=== PATIENT | female | born 1990 | race Caucasian/White ===

== ENCOUNTER 2018-12-26 02:24 | Inpatient (IN) | payer BC, MEDICAID ==
[2018-12-26] MEDS ORDERED: Sodium Chloride 0.9% 10 ML Syringe FLUSH PRN (02:29)
[2018-12-26] MEDS ORDERED: Sodium Chloride 0.9% 2.5 ML Syringe FLUSH PRN (02:29)
[2018-12-26] MEDS ORDERED: MVI, Adult with Vitamin K 10 ML, Thiamine 100 MG, Folic Acid 1 MG in Sodium Chloride 0.... IV ONE ×4 (02:31)
--- NOTE | 2018-12-26 02:58 | EDM.PDOC ---
ED HPI GENERAL MEDICAL PROBLEM - General Chief Complaint: Drug or Alcohol Abuse Stated Complaint: AMB Time Seen by Provider: 12/26/18 05:34 - History of Present Illness INITIAL COMMENTS - FREE TEXT/NARRATIVE: HISTORY AND PHYSICAL: History of present illness: Patient 28-year-old white female presents via paramedics intoxicated patient was drinking the night she's without any other reported complaints Review of systems: As per history of present illness and below otherwise all systems reviewed and negative. Past medical history: As per history of present illness and as reviewed below otherwise noncontributory. Surgical history: As per history of present illness and as reviewed below otherwise noncontributory. Social history: No reported history of drug or alcohol abuse. Family history: As per history of present illness and as reviewed below otherwise noncontributory. Physical exam: HEENT: Atraumatic, normocephalic, pupils reactive, negative for conjunctival pallor or scleral icterus, mucous membranes moist, throat clear, neck supple, nontender, trachea midline. Lungs: Clear to auscultation, breath sounds equal bilaterally, chest nontender. Heart: S1S2, regular, negative for clicks, rubs, or JVD. Abdomen: Soft, nondistended, nontender. Negative for masses or hepatosplenomegaly. Negative for costovertebral tenderness. Pelvis: Stable nontender. Genitourinary: Deferred. Rectal: Deferred. Extremities: Atraumatic, negative for cords or calf pain. Neurovascular unremarkable. Neuro: Moves all extremities limited but grossly nonfocal exam Diagnostics: CBC CMP UA UDS CT brain EKG chest x-ray EtOH Therapeutics: Banana bag 1 L bolus Impression: #1 acute alcohol intoxication Definitive disposition and diagnosis as appropriate pending reevaluation and review of above. Treatments PRODUCT REPRESENTATIVE: Reports: Oxygen - Related Data Allergies Allergy/AdvReac Type Severity Reaction Status Date / Time Sulfa (Sulfonamide Allergy Rash Verified 08/28/13 14:22 Antibiotics) Home Meds: Home Meds . [No Known Home Meds] 08/28/13 [History] ED ROS GENERAL - Review of Systems Review Of Systems: ROS reveals no pertinent complaints other than HPI. ED EXAM, GENERAL - Physical Exam Exam: See Below (See dictation) Course - Vital Signs Last Recorded V/S: Last Vital Signs Temp 36.4 C 12/26/18 02:30 Pulse 88 12/26/18 04:26 Resp 16 12/26/18 04:26 BP 104/67 12/26/18 04:26 Pulse Ox 100 12/26/18 04:26 - Orders/Labs/Meds Orders: Active Orders 24 hr Category Date Time Status EKG Documentation Completion [RC] STAT Care 12/26/18 02:30 Active ETOH [ETHANOL BLOOD MEDICAL] [CHEM] Stat Lab 12/26/18 05:31 Ordered Sodium Chloride 0.9% [Normal Saline] 1,000 ml Med 12/26/18 04:30 Active IV ASDIRECTED Sodium Chloride 0.9% [Saline Flush] Med 12/26/18 02:29 Active 10 ml FLUSH ASDIRECTED PRN Sodium Chloride 0.9% [Saline Flush] Med 12/26/18 02:29 Active 2.5 ml FLUSH ASDIRECTED PRN Saline Lock Insert [OM.PC] Stat Oth 12/26/18 02:29 Ordered Medication Orders Sodium Chloride (Normal Saline) 1,000 mls @ 125 mls/hr IV ASDIRECTED MAGO Last Admin: 12/26/18 04:25 Dose: 125 mls/hr Sodium Chloride (Saline Flush) 10 ml FLUSH ASDIRECTED PRN PRN Reason: Keep Vein Open Sodium Chloride (Saline Flush) 2.5 ml FLUSH ASDIRECTED PRN PRN Reason: Keep Vein Open Labs: Laboratory Tests 12/26/18 12/26/18 12/26/18 Range/Units 02:30 02:30 02:30 WBC 6.04 (4.0-11.0) K/uL RBC 4.07 L (4.30-5.90) M/uL Hgb 12.5 (12.0-16.0) g/dL Hct 38.1 (36.0-46.0) % MCV 93.6 (80.0-98.0) fL MCH 30.7 (27.0-32.0) pg MCHC 32.8 (31.0-37.0) g/dL RDW Std Deviation 53.2 (28.0-62.0) fl RDW Coeff of Jaquan 16 H (11.0-15.0) % Plt Count 452 H (150-400) K/uL MPV 9.40 (7.40-12.00) fL Neut % (Auto) 49.7 (48.0-80.0) % Lymph % (Auto) 45.9 H (16.0-40.0) % [place] % (Auto) 3.6 (0.0-15.0) % Eos % (Auto) 0.0 (0.0-7.0) % Baso % (Auto) 0.8 (0.0-1.5) % Neut # (Auto) 3.0 (1.4-5.7) K/uL Lymph # (Auto) 2.8 H (0.6-2.4) K/uL [place] # (Auto) 0.2 (0.0-0.8) K/uL Eos # (Auto) 0.0 (0.0-0.7) K/uL Baso # (Auto) 0.1 (0.0-0.1) K/uL Nucleated RBC % 0.0 /100WBC Nucleated RBCs # 0 K/uL INR 0.96 Sodium 146 H (136-145) mmol/L Potassium 3.9 (3.5-5.1) mmol/L Chloride 106 (98-107) mmol/L Carbon Dioxide 19.4 L (21.0-32.0) mmol/L BUN 7 (7.0-18.0) mg/dL Creatinine 0.6 (0.6-1.0) mg/dL Est Cr Clr Drug Dosing TNP Estimated GFR (MDRD) > 60.0 ml/min Glucose 100 (74-106) mg/dL Calcium 8.5 (8.5-10.1) mg/dL Total Bilirubin 0.4 (0.2-1.0) mg/dL AST 148 H (15-37) IU/L ALT 73 H (14-63) IU/L Alkaline Phosphatase 112 (46-116) U/L Troponin I < 0.050 (0.000-0.056) ng/mL Total Protein 7.0 (6.4-8.2) g/dL Albumin 3.3 L (3.4-5.0) g/dL Globulin 3.7 (2.6-4.0) g/dL Albumin/Globulin Ratio 0.9 (0.9-1.6) HCG, Qual (NEG) Urine Color Urine Appearance Urine pH (5.0-8.0) Ur Specific [place] (1.001-1.035) Urine Protein (NEGATIVE) mg/dL Urine Glucose (UA) (NEGATIVE) mg/dL Urine Ketones (NEGATIVE) mg/dL Urine Occult Blood (NEGATIVE) Urine Nitrite (NEGATIVE) Urine Bilirubin (NEGATIVE) Urine Urobilinogen (<2.0) EU/dL Ur Leukocyte Esterase (NEGATIVE) Urine Opiates Screen (NEGATIVE) Ur Oxycodone Screen (NEGATIVE) Urine Methadone Screen (NEGATIVE) Ur Barbiturates Screen (NEGATIVE) Ur Phencyclidine Scrn (NEGATIVE) Ur Amphetamine Screen (NEGATIVE) U Methamphetamines Scrn (NEGATIVE) U Benzodiazepines Scrn (NEGATIVE) U Cocaine Metab Screen (NEGATIVE) U Marijuana (THC) Screen (NEGATIVE) Ethyl Alcohol mg/dL 12/26/18 12/26/18 12/26/18 Range/Units 02:30 02:30 02:40 WBC (4.0-11.0) K/uL RBC (4.30-5.90) M/uL Hgb (12.0-16.0) g/dL Hct (36.0-46.0) % MCV (80.0-98.0) fL MCH (27.0-32.0) pg MCHC (31.0-37.0) g/dL RDW Std Deviation (28.0-62.0) fl RDW Coeff of Jaquan (11.0-15.0) % Plt Count (150-400) K/uL MPV (7.40-12.00) fL Neut % (Auto) (48.0-80.0) % Lymph % (Auto) (16.0-40.0) % [place] % (Auto) (0.0-15.0) % Eos % (Auto) (0.0-7.0) % Baso % (Auto) (0.0-1.5) % Neut # (Auto) (1.4-5.7) K/uL Lymph # (Auto) (0.6-2.4) K/uL [place] # (Auto) (0.0-0.8) K/uL Eos # (Auto) (0.0-0.7) K/uL Baso # (Auto) (0.0-0.1) K/uL Nucleated RBC % /100WBC Nucleated RBCs # K/uL INR Sodium (136-145) mmol/L Potassium (3.5-5.1) mmol/L Chloride (98-107) mmol/L Carbon Dioxide (21.0-32.0) mmol/L BUN (7.0-18.0) mg/dL Creatinine (0.6-1.0) mg/dL Est Cr Clr Drug Dosing Estimated GFR (MDRD) ml/min Glucose (74-106) mg/dL Calcium (8.5-10.1) mg/dL Total Bilirubin (0.2-1.0) mg/dL AST (15-37) IU/L ALT (14-63) IU/L Alkaline Phosphatase (46-116) U/L Troponin I (0.000-0.056) ng/mL Total Protein (6.4-8.2) g/dL Albumin (3.4-5.0) g/dL Globulin (2.6-4.0) g/dL Albumin/Globulin Ratio (0.9-1.6) HCG, Qual NEGATIVE (NEG) Urine Color YELLOW Urine Appearance CLEAR Urine pH 5.5 (5.0-8.0) Ur Specific [place] 1.010 (1.001-1.035) Urine Protein NEGATIVE (NEGATIVE) mg/dL Urine Glucose (UA) NEGATIVE (NEGATIVE) mg/dL Urine Ketones 15 H (NEGATIVE) mg/dL Urine Occult Blood NEGATIVE (NEGATIVE) Urine Nitrite NEGATIVE (NEGATIVE) Urine Bilirubin NEGATIVE (NEGATIVE) Urine Urobilinogen 0.2 (<2.0) EU/dL Ur Leukocyte Esterase NEGATIVE (NEGATIVE) Urine Opiates Screen (NEGATIVE) Ur Oxycodone Screen (NEGATIVE) Urine Methadone Screen (NEGATIVE) Ur Barbiturates Screen (NEGATIVE) Ur Phencyclidine Scrn (NEGATIVE) Ur Amphetamine Screen (NEGATIVE) U Methamphetamines Scrn (NEGATIVE) U Benzodiazepines Scrn (NEGATIVE) U Cocaine Metab Screen (NEGATIVE) U Marijuana (THC) Screen (NEGATIVE) Ethyl Alcohol 560 mg/dL 12/26/18 Range/Units 02:40 WBC (4.0-11.0) K/uL RBC (4.30-5.90) M/uL Hgb (12.0-16.0) g/dL Hct (36.0-46.0) % MCV (80.0-98.0) fL MCH (27.0-32.0) pg MCHC (31.0-37.0) g/dL RDW Std Deviation (28.0-62.0) fl RDW Coeff of Jaquan (11.0-15.0) % Plt Count (150-400) K/uL MPV (7.40-12.00) fL Neut % (Auto) (48.0-80.0) % Lymph % (Auto) (16.0-40.0) % [place] % (Auto) (0.0-15.0) % Eos % (Auto) (0.0-7.0) % Baso % (Auto) (0.0-1.5) % Neut # (Auto) (1.4-5.7) K/uL Lymph # (Auto) (0.6-2.4) K/uL [place] # (Auto) (0.0-0.8) K/uL Eos # (Auto) (0.0-0.7) K/uL Baso # (Auto) (0.0-0.1) K/uL Nucleated RBC % /100WBC Nucleated RBCs # K/uL INR Sodium (136-145) mmol/L Potassium (3.5-5.1) mmol/L Chloride (98-107) mmol/L Carbon Dioxide (21.0-32.0) mmol/L BUN (7.0-18.0) mg/dL Creatinine (0.6-1.0) mg/dL Est Cr Clr Drug Dosing Estimated GFR (MDRD) ml/min Glucose (74-106) mg/dL Calcium (8.5-10.1) mg/dL Total Bilirubin (0.2-1.0) mg/dL AST (15-37) IU/L ALT (14-63) IU/L Alkaline Phosphatase (46-116) U/L Troponin I (0.000-0.056) ng/mL Total Protein (6.4-8.2) g/dL Albumin (3.4-5.0) g/dL Globulin (2.6-4.0) g/dL Albumin/Globulin Ratio (0.9-1.6) HCG, Qual (NEG) Urine Color Urine Appearance Urine pH (5.0-8.0) Ur Specific [place] (1.001-1.035) Urine Protein (NEGATIVE) mg/dL Urine Glucose (UA) (NEGATIVE) mg/dL Urine Ketones (NEGATIVE) mg/dL Urine Occult Blood (NEGATIVE) Urine Nitrite (NEGATIVE) Urine Bilirubin (NEGATIVE) Urine Urobilinogen (<2.0) EU/dL Ur Leukocyte Esterase (NEGATIVE) Urine Opiates Screen NEGATIVE (NEGATIVE) Ur Oxycodone Screen NEGATIVE (NEGATIVE) Urine Methadone Screen NEGATIVE (NEGATIVE) Ur Barbiturates Screen NEGATIVE (NEGATIVE) Ur Phencyclidine Scrn NEGATIVE (NEGATIVE) Ur Amphetamine Screen NEGATIVE (NEGATIVE) U Methamphetamines Scrn NEGATIVE (NEGATIVE) U Benzodiazepines Scrn NEGATIVE (NEGATIVE) U Cocaine Metab Screen NEGATIVE (NEGATIVE) U Marijuana (THC) Screen NEGATIVE (NEGATIVE) Ethyl Alcohol mg/dL Meds: Medications Generic Name Dose Route Start Last Admin Trade Name Freq PRN Reason Stop Dose Admin Sodium Chloride 1,000 mls @ 125 mls/hr 12/26/18 04:30 12/26/18 04:25 Normal Saline IV 125 mls/hr ASDIRECTED MAGO Administration Sodium Chloride 10 ml 12/26/18 02:29 Saline Flush FLUSH ASDIRECTED PRN Keep Vein Open Sodium Chloride 2.5 ml 12/26/18 02:29 Saline Flush FLUSH ASDIRECTED PRN Keep Vein Open Discontinued Medications Generic Name Dose Route Start Last Admin Trade Name Freq PRN Reason Stop Dose Admin Multivitamins/Minerals 10 ml/ 1,011.2 mls @ 999 mls/hr 12/26/18 02:31 02:45 Thiamine HCl 100 mg/ Folic IV 12/26/18 03:31 999 mls/hr Acid 1 mg/ Sodium Chloride ONETIME ONE Administration Departure - Departure Time of Disposition: 02:57 Disposition: Admitted As Inpatient 66 Condition: Good Clinical Impression: Alcohol abuse - Discharge Information Forms: ED Department Discharge - My Orders Last 24 Hours: My Active Orders 12/26/18 02:29 Sodium Chloride 0.9% [Saline Flush] 10 ml FLUSH ASDIRECTED PRN Sodium Chloride 0.9% [Saline Flush] 2.5 ml FLUSH ASDIRECTED PRN Saline Lock Insert [OM.PC] Stat 12/26/18 02:30 EKG Documentation Completion [RC] STAT 12/26/18 04:30 Sodium Chloride 0.9% [Normal Saline] 1,000 ml IV ASDIRECTED 12/26/18 05:31 ETOH [ETHANOL BLOOD MEDICAL] [CHEM] Stat - Assessment/Plan Last 24 Hours: My Active Orders 12/26/18 02:29 Sodium Chloride 0.9% [Saline Flush] 10 ml FLUSH ASDIRECTED PRN Sodium Chloride 0.9% [Saline Flush] 2.5 ml FLUSH ASDIRECTED PRN Saline Lock Insert [OM.PC] Stat 12/26/18 02:30 EKG Documentation Completion [RC] STAT 12/26/18 04:30 Sodium Chloride 0.9% [Normal Saline] 1,000 ml IV ASDIRECTED 12/26/18 05:31 ETOH [ETHANOL BLOOD MEDICAL] [CHEM] Stat
[2018-12-26 02:59] LABS: CHLORIDE,CL 106 mmol/L (98-107); SODIUM,NA 146 mmol/L (136-145)
--- NOTE | 2018-12-26 03:26 | CR ---
INDICATION: altered mental status, ETOH TECHNIQUE: Chest 1 view. COMPARISON: None. FINDINGS: Cardiovascular and mediastinum: Heart size and vasculature are normal in caliber and appearance. Mediastinum is within normal limits. Lungs and pleural space: Lungs are clear. No sign of infiltrate or mass. No sign of pleural effusion. No pneumothorax. Bones and soft tissues: No significant findings. IMPRESSION: Unremarkable chest. Dictated by: Jaquan Abernathy MD @ 12/26/2018 03:25:46 (Electronically Signed)
--- NOTE | 2018-12-26 03:41 | CT ---
INDICATION: Change in mental status, ETOH TECHNIQUE: CT head without contrast. COMPARISON: None FINDINGS: CSF spaces: Within normal limits for age. Brain parenchyma: The cesar-white differentiation is normal. No sign of mass, hemorrhage, or midline shift. Skull base and calvarium: The visualized paranasal sinuses and mastoid air cells demonstrate no acute or significant findings. The visualized orbits are grossly unremarkable. No skull fractures. IMPRESSION: Unremarkable noncontrast head CT. Dictated by Jaquan Abernathy MD @ 12/26/2018 3:39:07 AM Please note that all CT scans at this facility use dose modulation, iterative reconstruction, and/or weight-based dosing when appropriate to reduce radiation dose to as low as reasonably achievable. Dictated by: Jaquan Abernathy MD @ 12/26/2018 03:39:12 (Electronically Signed)
[2018-12-26] MEDS: Sodium Chloride 0.9% 1,000 ML IV SCH ×3 (04:25→19:07)
--- NOTE | 2018-12-26 06:35 | PCM.HP.2 ---
H&P History of Present Illness - General Date of Service: 12/26/18 Admit Problem/Dx: Admission Diagnosis/Problem Admission Diagnosis/Problem Altered mental status, acute alcohol intoxication, early withdrawal symptoms from alcohol abuse Source of Information: Patient, Old Records History Limitations: Reports: Altered Mental Status - History of Present Illness Initial Comments - Free Text/Narative: The patient is a 28-year-old lady who had presented to the emergency department by EMS as she was heavily intoxicated. Upon initial presentation in the emergency department the patient was unresponsive. The patient's blood alcohol level upon presentation to the emergency department was 560 mg/dL. The patient was somewhat more awake upon admission to the ICU and she was able to say that she is in alcohol withdrawal. The patient has denied any seizure type activity. The patient also has reportedly said that she had 4 drinks. The patient has denied any pain but has had some nausea associated. Other drugs of abuse on urine toxicology screen were negative. The patient at this time is a poor historian due to her intoxication. Onset of Symptoms: Reports: Unknown/Unsure Duration of Symptoms: Reports: Day(s): Improves with: Reports: None Worsens with: Reports: None Associated Symptoms: Reports: Nausea/Vomiting - Related Data Allergies/Adverse Reactions: Allergies Allergy/AdvReac Type Severity Reaction Status Date / Time lorazepam [From Ativan] Allergy Rash Verified 12/26/18 06:43 Sulfa (Sulfonamide Allergy Rash Verified 08/28/13 14:22 Antibiotics) Home Medications: Home Meds ALPRAZolam [Alprazolam] 0.5 mg PO DAILY PRN 12/26/18 [History] RX: Zolpidem Tartrate 5 mg PO BEDTIME PRN 12/26/18 [History] Past Medical History - History Comment History Comment: Past medical history not obtainable or reliable secondary to the patient's intoxication Social & Family History - Alcohol Use Alcohol Use History: Yes Alcohol Use in Last Twelve Months: Yes Alcohol Use Frequency: Binges H&P Review of Systems - Review of Systems: Review Of Systems: Unable To Obtain (Unable to obtain due to the patient's intoxication) Exam - Exam Exam: See Below - Vital Signs Vital Signs: Last Vital Signs Temp 36.6 C 12/26/18 05:41 Pulse 92 12/26/18 05:41 Resp 16 12/26/18 05:41 BP 104/64 12/26/18 05:41 Pulse Ox 96 12/26/18 05:41 Weight: 63.503 kg - Exam Quality Assessment: No: Supplemental Oxygen General: Alert, Oriented, Cooperative, Mild Distress HEENT: Conjunctiva Clear, EACs Clear, EOMI, Nares Patent, Pupils Equal, PERRLA. No: Mucosa Moist & [place] (Dry) Neck: Supple, Trachea Midline Lungs: Clear to Auscultation, Normal Respiratory Effort Cardiovascular: Regular Rate, Regular Rhythm GI/Abdominal Exam: Normal Bowel Sounds, Soft, No Distention Back Exam: Normal Inspection, Full Range of Motion Extremities: Normal Inspection, No Pedal Edema Skin: Warm, Dry, Intact Neurological: Cranial Nerves Intact, Other (Tremulous). No: Normal Gait, Normal Tone Neuro Extensive - Mental Status: Alert, Oriented x3, Opens Eyes to Commands, Slow Response to Commands Neuro Extensive - Motor, Sensory, Reflexes: Tremor Psychiatric: Alert, Normal Affect, Normal Mood - Patient Data Lab Results Last 24 hrs: Laboratory Results - last 24 hr 12/26/18 12/26/18 12/26/18 Range/Units 02:30 02:30 02:30 WBC 6.04 (4.0-11.0) K/uL RBC 4.07 L (4.30-5.90) M/uL Hgb 12.5 (12.0-16.0) g/dL Hct 38.1 (36.0-46.0) % MCV 93.6 (80.0-98.0) fL MCH 30.7 (27.0-32.0) pg MCHC 32.8 (31.0-37.0) g/dL RDW Std Deviation 53.2 (28.0-62.0) fl RDW Coeff of Jaquan 16 H (11.0-15.0) % Plt Count 452 H (150-400) K/uL MPV 9.40 (7.40-12.00) fL Neut % (Auto) 49.7 (48.0-80.0) % Lymph % (Auto) 45.9 H (16.0-40.0) % [place] % (Auto) 3.6 (0.0-15.0) % Eos % (Auto) 0.0 (0.0-7.0) % Baso % (Auto) 0.8 (0.0-1.5) % Neut # (Auto) 3.0 (1.4-5.7) K/uL Lymph # (Auto) 2.8 H (0.6-2.4) K/uL [place] # (Auto) 0.2 (0.0-0.8) K/uL Eos # (Auto) 0.0 (0.0-0.7) K/uL Baso # (Auto) 0.1 (0.0-0.1) K/uL Nucleated RBC % 0.0 /100WBC Nucleated RBCs # 0 K/uL INR 0.96 Sodium 146 H (136-145) mmol/L Potassium 3.9 (3.5-5.1) mmol/L Chloride 106 (98-107) mmol/L Carbon Dioxide 19.4 L (21.0-32.0) mmol/L BUN 7 (7.0-18.0) mg/dL Creatinine 0.6 (0.6-1.0) mg/dL Est Cr Clr Drug Dosing TNP Estimated GFR (MDRD) > 60.0 ml/min Glucose 100 (74-106) mg/dL POC Glucose (60-110) mg/dL Calcium 8.5 (8.5-10.1) mg/dL Total Bilirubin 0.4 (0.2-1.0) mg/dL AST 148 H (15-37) IU/L ALT 73 H (14-63) IU/L Alkaline Phosphatase 112 (46-116) U/L Troponin I < 0.050 (0.000-0.056) ng/mL Total Protein 7.0 (6.4-8.2) g/dL Albumin 3.3 L (3.4-5.0) g/dL Globulin 3.7 (2.6-4.0) g/dL Albumin/Globulin Ratio 0.9 (0.9-1.6) HCG, Qual (NEG) Urine Color Urine Appearance Urine pH (5.0-8.0) Ur Specific [place] (1.001-1.035) Urine Protein (NEGATIVE) mg/dL Urine Glucose (UA) (NEGATIVE) mg/dL Urine Ketones (NEGATIVE) mg/dL Urine Occult Blood (NEGATIVE) Urine Nitrite (NEGATIVE) Urine Bilirubin (NEGATIVE) Urine Urobilinogen (<2.0) EU/dL Ur Leukocyte Esterase (NEGATIVE) Urine Opiates Screen (NEGATIVE) Ur Oxycodone Screen (NEGATIVE) Urine Methadone Screen (NEGATIVE) Ur Barbiturates Screen (NEGATIVE) Ur Phencyclidine Scrn (NEGATIVE) Ur Amphetamine Screen (NEGATIVE) U Methamphetamines Scrn (NEGATIVE) U Benzodiazepines Scrn (NEGATIVE) U Cocaine Metab Screen (NEGATIVE) U Marijuana (THC) Screen (NEGATIVE) Ethyl Alcohol mg/dL 12/26/18 12/26/18 12/26/18 Range/Units 02:30 02:30 02:40 WBC (4.0-11.0) K/uL RBC (4.30-5.90) M/uL Hgb (12.0-16.0) g/dL Hct (36.0-46.0) % MCV (80.0-98.0) fL MCH (27.0-32.0) pg MCHC (31.0-37.0) g/dL RDW Std Deviation (28.0-62.0) fl RDW Coeff of Jaquan (11.0-15.0) % Plt Count (150-400) K/uL MPV (7.40-12.00) fL Neut % (Auto) (48.0-80.0) % Lymph % (Auto) (16.0-40.0) % [place] % (Auto) (0.0-15.0) % Eos % (Auto) (0.0-7.0) % Baso % (Auto) (0.0-1.5) % Neut # (Auto) (1.4-5.7) K/uL Lymph # (Auto) (0.6-2.4) K/uL [place] # (Auto) (0.0-0.8) K/uL Eos # (Auto) (0.0-0.7) K/uL Baso # (Auto) (0.0-0.1) K/uL Nucleated RBC % /100WBC Nucleated RBCs # K/uL INR Sodium (136-145) mmol/L Potassium (3.5-5.1) mmol/L Chloride (98-107) mmol/L Carbon Dioxide (21.0-32.0) mmol/L BUN (7.0-18.0) mg/dL Creatinine (0.6-1.0) mg/dL Est Cr Clr Drug Dosing Estimated GFR (MDRD) ml/min Glucose (74-106) mg/dL POC Glucose (60-110) mg/dL Calcium (8.5-10.1) mg/dL Total Bilirubin (0.2-1.0) mg/dL AST (15-37) IU/L ALT (14-63) IU/L Alkaline Phosphatase (46-116) U/L Troponin I (0.000-0.056) ng/mL Total Protein (6.4-8.2) g/dL Albumin (3.4-5.0) g/dL Globulin (2.6-4.0) g/dL Albumin/Globulin Ratio (0.9-1.6) HCG, Qual NEGATIVE (NEG) Urine Color YELLOW Urine Appearance CLEAR Urine pH 5.5 (5.0-8.0) Ur Specific [place] 1.010 (1.001-1.035) Urine Protein NEGATIVE (NEGATIVE) mg/dL Urine Glucose (UA) NEGATIVE (NEGATIVE) mg/dL Urine Ketones 15 H (NEGATIVE) mg/dL Urine Occult Blood NEGATIVE (NEGATIVE) Urine Nitrite NEGATIVE (NEGATIVE) Urine Bilirubin NEGATIVE (NEGATIVE) Urine Urobilinogen 0.2 (<2.0) EU/dL Ur Leukocyte Esterase NEGATIVE (NEGATIVE) Urine Opiates Screen (NEGATIVE) Ur Oxycodone Screen (NEGATIVE) Urine Methadone Screen (NEGATIVE) Ur Barbiturates Screen (NEGATIVE) Ur Phencyclidine Scrn (NEGATIVE) Ur Amphetamine Screen (NEGATIVE) U Methamphetamines Scrn (NEGATIVE) U Benzodiazepines Scrn (NEGATIVE) U Cocaine Metab Screen (NEGATIVE) U Marijuana (THC) Screen (NEGATIVE) Ethyl Alcohol 560 mg/dL 12/26/18 12/26/18 12/26/18 Range/Units 02:40 05:38 05:38 WBC (4.0-11.0) K/uL RBC (4.30-5.90) M/uL Hgb (12.0-16.0) g/dL Hct (36.0-46.0) % MCV (80.0-98.0) fL MCH (27.0-32.0) pg MCHC (31.0-37.0) g/dL RDW Std Deviation (28.0-62.0) fl RDW Coeff of Jaquan (11.0-15.0) % Plt Count (150-400) K/uL MPV (7.40-12.00) fL Neut % (Auto) (48.0-80.0) % Lymph % (Auto) (16.0-40.0) % [place] % (Auto) (0.0-15.0) % Eos % (Auto) (0.0-7.0) % Baso % (Auto) (0.0-1.5) % Neut # (Auto) (1.4-5.7) K/uL Lymph # (Auto) (0.6-2.4) K/uL [place] # (Auto) (0.0-0.8) K/uL Eos # (Auto) (0.0-0.7) K/uL Baso # (Auto) (0.0-0.1) K/uL Nucleated RBC % /100WBC Nucleated RBCs # K/uL INR Sodium (136-145) mmol/L Potassium (3.5-5.1) mmol/L Chloride (98-107) mmol/L Carbon Dioxide (21.0-32.0) mmol/L BUN (7.0-18.0) mg/dL Creatinine (0.6-1.0) mg/dL Est Cr Clr Drug Dosing Estimated GFR (MDRD) ml/min Glucose (74-106) mg/dL POC Glucose 64 (60-110) mg/dL Calcium (8.5-10.1) mg/dL Total Bilirubin (0.2-1.0) mg/dL AST (15-37) IU/L ALT (14-63) IU/L Alkaline Phosphatase (46-116) U/L Troponin I (0.000-0.056) ng/mL Total Protein (6.4-8.2) g/dL Albumin (3.4-5.0) g/dL Globulin (2.6-4.0) g/dL Albumin/Globulin Ratio (0.9-1.6) HCG, Qual (NEG) Urine Color Urine Appearance Urine pH (5.0-8.0) Ur Specific [place] (1.001-1.035) Urine Protein (NEGATIVE) mg/dL Urine Glucose (UA) (NEGATIVE) mg/dL Urine Ketones (NEGATIVE) mg/dL Urine Occult Blood (NEGATIVE) Urine Nitrite (NEGATIVE) Urine Bilirubin (NEGATIVE) Urine Urobilinogen (<2.0) EU/dL Ur Leukocyte Esterase (NEGATIVE) Urine Opiates Screen NEGATIVE (NEGATIVE) Ur Oxycodone Screen NEGATIVE (NEGATIVE) Urine Methadone Screen NEGATIVE (NEGATIVE) Ur Barbiturates Screen NEGATIVE (NEGATIVE) Ur Phencyclidine Scrn NEGATIVE (NEGATIVE) Ur Amphetamine Screen NEGATIVE (NEGATIVE) U Methamphetamines Scrn NEGATIVE (NEGATIVE) U Benzodiazepines Scrn NEGATIVE (NEGATIVE) U Cocaine Metab Screen NEGATIVE (NEGATIVE) U Marijuana (THC) Screen NEGATIVE (NEGATIVE) Ethyl Alcohol 490 mg/dL Result Diagrams: 12/26/18 02:30 12/26/18 02:30 - Problem List (1) Acute alcoholic intoxication in alcoholism with blood level over 0.3 without complication SNOMED Code(s): 727369803 ICD Code: F10.220 - ALCOHOL DEPENDENCE WITH INTOXICATION, UNCOMPLICATED Status: Acute Priority: High Current Visit: Yes Problem Details: Initial blood alcohol level 560 md/dL Problem List Initiated/Reviewed/Updated: Yes Orders Last 24hrs: Active Orders 24 hr Category Date Time Status Patient Status [ADT] Stat ADT 12/26/18 05:35 Active Sodium Chloride 0.9% [Normal Saline] 1,000 ml Med 12/26/18 04:30 Active IV ASDIRECTED Sodium Chloride 0.9% [Saline Flush] Med 12/26/18 02:29 Active 10 ml FLUSH ASDIRECTED PRN Sodium Chloride 0.9% [Saline Flush] Med 12/26/18 02:29 Active 2.5 ml FLUSH ASDIRECTED PRN Saline Lock Insert [OM.PC] Stat Oth 12/26/18 02:29 Ordered Medication Orders Sodium Chloride (Normal Saline) 1,000 mls @ 125 mls/hr IV ASDIRECTED MAGO Last Admin: 12/26/18 04:25 Dose: 125 mls/hr Sodium Chloride (Saline Flush) 10 ml FLUSH ASDIRECTED PRN PRN Reason: Keep Vein Open Sodium Chloride (Saline Flush) 2.5 ml FLUSH ASDIRECTED PRN PRN Reason: Keep Vein Open Assessment/Plan Comment:: The patient is a 28-year-old lady who had been admitted to intensive care unit at approximately 0600 this morning due to acute alcohol intoxication. Patient says that she has a history of withdrawal symptoms but has denied seizures. She' ll be kept on seizure precautions. She has been admitted as an inpatient as her current blood alcohol level has been associated with marked respiratory depression and risk of . She is on telemetry. The patient also be monitored with her vital signs every 2 hours. The patient will also be placed on alprazolam as she has taken this before and it is on her home medication list. She will be kept on the [facility] protocol for monitoring. I've also ordered thiamine 100 mg by mouth daily and folate 1 mg by mouth daily to help prevent encephalopathy. The patient's blood alcohol level does indicate a degree of chronicity and will interview the patient later with regards to plan for follow- up and alcohol cessation. Repeat laboratory studies have been ordered. Patient' s regular diet has also been ordered. - Mortality Measure Prognosis:: Good
[2018-12-26] MEDS ORDERED: Ondansetron 4 MG/2 ML SDV IVPUSH PRN (06:47)
[2018-12-26] MEDS ORDERED: Ondansetron 4 MG Tab.DIS PO PRN (06:47)
[2018-12-26] MEDS: Heparin Sodium 5,000 Units/ML Vial SUBCUT SCH ×4 (07:50→22:36)
[2018-12-26] MEDS: ALPRAZolam 0.5 MG Tab PO PRN ×2 (07:59→17:27)
[2018-12-26] MEDS: Thiamine 100 MG Tab PO SCH (09:10)
[2018-12-26] MEDS: Folic Acid 1 MG Tab PO SCH (09:10)
[2018-12-26] MEDS ORDERED: chlordiazePOXIDE 10 MG Cap PO SCH (09:35)
[2018-12-26] MEDS: chlordiazePOXIDE 10 MG Cap PO SCH ×2 (09:57→19:07)
[2018-12-26] MEDS ORDERED: Sodium Chloride 0.9% 1,000 ML IV ONE (10:05)
[2018-12-26] MEDS: Ibuprofen 400 MG Tab PO PRN (21:39)
[2018-12-27] MEDS: ALPRAZolam 0.5 MG Tab PO PRN ×2 (00:21→11:48)
[2018-12-27] MEDS: Sodium Chloride 0.9% 1,000 ML IV SCH ×2 (03:01→10:03)
[2018-12-27 06:41] LABS: CHLORIDE,CL 106 mmol/L (98-107); SODIUM,NA 141 mmol/L (136-145)
[2018-12-27] MEDS: Heparin Sodium 5,000 Units/ML Vial SUBCUT SCH ×2 (07:04→15:19)
--- NOTE | 2018-12-27 08:35 | PCM.PN ---
<Salvador Ibarra M - Last Filed: 12/27/18 08:40> - General Info Date of Service: 12/27/18 Subjective Update: 28-year-old female admitted for acute alcohol intoxication and history of withdrawal symptoms. At bedside this morning patient reports having a headache, chills and sweats. She has been tolerating oral diet, having bowel movements and urinating. - Patient Data Vitals - Most Recent: Last Vital Signs Temp 98.5 F 12/27/18 03:54 Pulse 62 12/27/18 03:54 Resp 14 12/27/18 03:54 BP 109/71 12/27/18 03:54 Pulse Ox 96 12/27/18 05:37 Weight - Most Recent: 63.503 kg I&O - Last 24 Hours: Intake & Output 12/26/18 12/27/18 12/27/18 22:59 06:59 14:59 Intake Total 1300 3475 Output Total 850 350 Balance 450 3125 Lab Results Last 24 Hours: Laboratory Results - last 24 hr 12/26/18 12/26/18 12/27/18 Range/Units 05:38 16:27 05:53 WBC 3.67 L (4.0-11.0) K/uL RBC 3.35 L (4.30-5.90) M/uL Hgb 10.3 L (12.0-16.0) g/dL Hct 31.0 L (36.0-46.0) % MCV 92.5 (80.0-98.0) fL MCH 30.7 (27.0-32.0) pg MCHC 33.2 (31.0-37.0) g/dL RDW Std Deviation 52.2 (28.0-62.0) fl RDW Coeff of Jaquan 15 (11.0-15.0) % Plt Count 258 (150-400) K/uL MPV 9.50 (7.40-12.00) fL Neut % (Auto) 31.0 L (48.0-80.0) % Lymph % (Auto) 61.9 H (16.0-40.0) % [place] % (Auto) 5.7 (0.0-15.0) % Eos % (Auto) 1.1 (0.0-7.0) % Baso % (Auto) 0.3 (0.0-1.5) % Neut # (Auto) 1.1 L (1.4-5.7) K/uL Lymph # (Auto) 2.3 (0.6-2.4) K/uL [place] # (Auto) 0.2 (0.0-0.8) K/uL Eos # (Auto) 0.0 (0.0-0.7) K/uL Baso # (Auto) 0.0 (0.0-0.1) K/uL Nucleated RBC % 0.0 /100WBC Nucleated RBCs # 0 K/uL Sodium (136-145) mmol/L Potassium (3.5-5.1) mmol/L Chloride (98-107) mmol/L Carbon Dioxide (21.0-32.0) mmol/L BUN (7.0-18.0) mg/dL Creatinine (0.6-1.0) mg/dL Est Cr Clr Drug Dosing mL/min Estimated GFR (MDRD) ml/min Glucose (74-106) mg/dL Calcium (8.5-10.1) mg/dL Magnesium 1.9 (1.8-2.4) mg/dL Total Bilirubin (0.2-1.0) mg/dL AST (15-37) IU/L ALT (14-63) IU/L Alkaline Phosphatase (46-116) U/L Total Protein (6.4-8.2) g/dL Albumin (3.4-5.0) g/dL Globulin (2.6-4.0) g/dL Albumin/Globulin Ratio (0.9-1.6) Ethyl Alcohol 149 mg/dL 12/27/18 Range/Units 05:53 WBC (4.0-11.0) K/uL RBC (4.30-5.90) M/uL Hgb (12.0-16.0) g/dL Hct (36.0-46.0) % MCV (80.0-98.0) fL MCH (27.0-32.0) pg MCHC (31.0-37.0) g/dL RDW Std Deviation (28.0-62.0) fl RDW Coeff of Jaquan (11.0-15.0) % Plt Count (150-400) K/uL MPV (7.40-12.00) fL Neut % (Auto) (48.0-80.0) % Lymph % (Auto) (16.0-40.0) % [place] % (Auto) (0.0-15.0) % Eos % (Auto) (0.0-7.0) % Baso % (Auto) (0.0-1.5) % Neut # (Auto) (1.4-5.7) K/uL Lymph # (Auto) (0.6-2.4) K/uL [place] # (Auto) (0.0-0.8) K/uL Eos # (Auto) (0.0-0.7) K/uL Baso # (Auto) (0.0-0.1) K/uL Nucleated RBC % /100WBC Nucleated RBCs # K/uL Sodium 141 (136-145) mmol/L Potassium 3.2 L (3.5-5.1) mmol/L Chloride 106 (98-107) mmol/L Carbon Dioxide 26.5 (21.0-32.0) mmol/L BUN 8 (7.0-18.0) mg/dL Creatinine 0.6 (0.6-1.0) mg/dL Est Cr Clr Drug Dosing 125.61 mL/min Estimated GFR (MDRD) > 60.0 ml/min Glucose 89 (74-106) mg/dL Calcium 8.5 (8.5-10.1) mg/dL Magnesium (1.8-2.4) mg/dL Total Bilirubin 0.8 (0.2-1.0) mg/dL AST 64 H (15-37) IU/L ALT 46 (14-63) IU/L Alkaline Phosphatase 84 (46-116) U/L Total Protein 5.5 L (6.4-8.2) g/dL Albumin 2.7 L (3.4-5.0) g/dL Globulin 2.8 (2.6-4.0) g/dL Albumin/Globulin Ratio 1.0 (0.9-1.6) Ethyl Alcohol mg/dL Med Orders - Current: Current Medications Alprazolam (Xanax) 0.5 mg PO Q6H PRN PRN Reason: Agitation Last Admin: 12/27/18 00:21 Dose: 0.5 mg Chlordiazepoxide HCl (Librium) 10 mg PO TID [facility] Last Admin: 12/27/18 07:03 Dose: 10 mg Folic Acid (Folic Acid) 1 mg PO DAILY [facility] Last Admin: 12/26/18 09:10 Dose: 1 mg Heparin Sodium (Porcine) (Heparin Sodium) 5,000 units SUBCUT Q8H [facility] Last Admin: 12/27/18 07:04 Dose: 5,000 units Sodium Chloride (Normal Saline) 1,000 mls @ 125 mls/hr IV ASDIRECTED [facility] Last Admin: 12/26/18 19:07 Dose: 125 mls/hr Ibuprofen (Motrin) 400 mg PO Q6H PRN PRN Reason: Pain (mild 1-3) Last Admin: 12/26/18 21:39 Dose: 400 mg Ondansetron HCl (Zofran Odt) 4 mg PO Q6H PRN PRN Reason: nausea, able to take PO Ondansetron HCl (Zofran) 4 mg IVPUSH Q6H PRN PRN Reason: Nausea/Vomiting Sodium Chloride (Saline Flush) 10 ml FLUSH ASDIRECTED PRN PRN Reason: Keep Vein Open Sodium Chloride (Saline Flush) 2.5 ml FLUSH ASDIRECTED PRN PRN Reason: Keep Vein Open Thiamine HCl (Vitamin B-1) 100 mg PO DAILY [facility] Last Admin: 12/26/18 09:10 Dose: 100 mg Discontinued Medications Chlordiazepoxide HCl (Librium) 10 mg PO .TID [facility] Chlordiazepoxide HCl (Librium) 10 mg PO TID [facility] Last Admin: 12/26/18 19:07 Dose: Not Given Chlordiazepoxide HCl (Librium) 10 mg PO TID [facility] Chlordiazepoxide HCl (Librium) Confirm Administered Dose 10 mg .ROUTE .STK-MED ONE Stop: 12/26/18 15:40 Last Admin: 12/26/18 15:44 Dose: 10 mg Multivitamins/Minerals 10 ml/Thiamine HCl 100 mg/ Folic Acid 1 mg/ Sodium Chloride 1,011.2 mls @ 999 mls/hr IV ONETIME ONE Stop: 12/26/18 03:31 Last Admin: 12/26/18 02:45 Dose: 999 mls/hr Sodium Chloride (Normal Saline) 1,000 mls @ 125 mls/hr IV ASDIRECTED [facility] Last Admin: 12/27/18 03:01 Dose: 125 mls/hr Sodium Chloride (Normal Saline) 1,000 mls @ 999 mls/hr IV .Bolus ONE Stop: 12/26/18 11:05 Last Admin: 12/26/18 10:05 Dose: 999 mls/hr - Exam General: Alert, Oriented, Mild Distress, Other (sweating) Lungs: Clear to Auscultation, Normal Respiratory Effort Cardiovascular: Regular Rate, Regular Rhythm GI/Abdominal Exam: Normal Bowel Sounds, Soft, Non-Tender, No Distention Extremities: Normal Inspection, No Pedal Edema Peripheral Pulses: 2+: Posterior Tibial (L), Posterior Tibial (R) Skin: Intact, Moist, Other (sweats) Psy/Mental Status: Anxious, Other (AOx3) - Problem List & Annotations (1) Acute alcoholic intoxication in alcoholism with blood level over 0.3 without complication SNOMED Code(s): 529893249 Code(s): F10.220 - ALCOHOL DEPENDENCE WITH INTOXICATION, UNCOMPLICATED Status: Acute Priority: High Current Visit: Yes Annotation/Comment:: Initial blood alcohol level 560 md/dL - Problem List Review Problem List Initiated/Reviewed/Updated: Yes - Plan Plan:: Assessment: 1. Acute alcohol intoxication. 2. Hypokalemia. Plan: 1. For acute alcohol intoxication, patient remains on telemetry, seizure precautions and CIWA assessments q4h. She is on Librium 10 mg TID and Xanax 0.5 mg q6h PRN anxiety. Lorazepam is listed as an allergy. Folic acid 1 mg qd and thiamine 100 mg qd also ordered. Will continue to monitor patient's clinical condition as last CIWA score was 12. Patient's family reportedly trying to get patient into inpatient rehab. 2. For hypokalemia, will replete with KCl 40 mEq PO x1. Will monitor with AM labs. <Mychal Menendez M - Last Filed: 12/27/18 09:22> - General Info Admission Dx/Problem (Free Text): I have examined the patient independently of medical office worker, Dr. Stacey MD. I have discussed the case with him. I have reviewed and agree with the examination and plan as outlined by him. Please see orders. - Patient Data Vitals - Most Recent: Last Vital Signs Temp 36.9 C 12/27/18 03:54 Pulse 62 12/27/18 03:54 Resp 14 12/27/18 03:54 BP 109/71 12/27/18 03:54 Pulse Ox 96 12/27/18 05:37 I&O - Last 24 Hours: Intake & Output 12/26/18 12/27/18 12/27/18 22:59 06:59 14:59 Intake Total 1300 3475 Output Total 850 350 Balance 450 3125 Lab Results Last 24 Hours: Laboratory Results - last 24 hr 12/26/18 12/27/18 12/27/18 Range/Units 16:27 05:53 05:53 WBC 3.67 L (4.0-11.0) K/uL RBC 3.35 L (4.30-5.90) M/uL Hgb 10.3 L (12.0-16.0) g/dL Hct 31.0 L (36.0-46.0) % MCV 92.5 (80.0-98.0) fL MCH 30.7 (27.0-32.0) pg MCHC 33.2 (31.0-37.0) g/dL RDW Std Deviation 52.2 (28.0-62.0) fl RDW Coeff of Jaquan 15 (11.0-15.0) % Plt Count 258 (150-400) K/uL MPV 9.50 (7.40-12.00) fL Neut % (Auto) 31.0 L (48.0-80.0) % Lymph % (Auto) 61.9 H (16.0-40.0) % [place] % (Auto) 5.7 (0.0-15.0) % Eos % (Auto) 1.1 (0.0-7.0) % Baso % (Auto) 0.3 (0.0-1.5) % Neut # (Auto) 1.1 L (1.4-5.7) K/uL Lymph # (Auto) 2.3 (0.6-2.4) K/uL [place] # (Auto) 0.2 (0.0-0.8) K/uL Eos # (Auto) 0.0 (0.0-0.7) K/uL Baso # (Auto) 0.0 (0.0-0.1) K/uL Nucleated RBC % 0.0 /100WBC Nucleated RBCs # 0 K/uL Sodium 141 (136-145) mmol/L Potassium 3.2 L (3.5-5.1) mmol/L Chloride 106 (98-107) mmol/L Carbon Dioxide 26.5 (21.0-32.0) mmol/L BUN 8 (7.0-18.0) mg/dL Creatinine 0.6 (0.6-1.0) mg/dL Est Cr Clr Drug Dosing 125.61 mL/min Estimated GFR (MDRD) > 60.0 ml/min Glucose 89 (74-106) mg/dL Calcium 8.5 (8.5-10.1) mg/dL Total Bilirubin 0.8 (0.2-1.0) mg/dL AST 64 H (15-37) IU/L ALT 46 (14-63) IU/L Alkaline Phosphatase 84 (46-116) U/L Total Protein 5.5 L (6.4-8.2) g/dL Albumin 2.7 L (3.4-5.0) g/dL Globulin 2.8 (2.6-4.0) g/dL Albumin/Globulin Ratio 1.0 (0.9-1.6) Ethyl Alcohol 149 mg/dL Med Orders - Current: Current Medications Alprazolam (Xanax) 0.5 mg PO Q6H PRN PRN Reason: Agitation Last Admin: 12/27/18 00:21 Dose: 0.5 mg Chlordiazepoxide HCl (Librium) 10 mg PO TID [facility] Last Admin: 12/27/18 07:03 Dose: 10 mg Folic Acid (Folic Acid) 1 mg PO DAILY [facility] Last Admin: 12/26/18 09:10 Dose: 1 mg Heparin Sodium (Porcine) (Heparin Sodium) 5,000 units SUBCUT Q8H [facility] Last Admin: 12/27/18 07:04 Dose: 5,000 units Sodium Chloride (Normal Saline) 1,000 mls @ 125 mls/hr IV ASDIRECTED [facility] Last Admin: 12/26/18 19:07 Dose: 125 mls/hr Ibuprofen (Motrin) 400 mg PO Q6H PRN PRN Reason: Pain (mild 1-3) Last Admin: 12/26/18 21:39 Dose: 400 mg Ondansetron HCl (Zofran Odt) 4 mg PO Q6H PRN PRN Reason: nausea, able to take PO Ondansetron HCl (Zofran) 4 mg IVPUSH Q6H PRN PRN Reason: Nausea/Vomiting Sodium Chloride (Saline Flush) 10 ml FLUSH ASDIRECTED PRN PRN Reason: Keep Vein Open Sodium Chloride (Saline Flush) 2.5 ml FLUSH ASDIRECTED PRN PRN Reason: Keep Vein Open Thiamine HCl (Vitamin B-1) 100 mg PO DAILY [facility] Last Admin: 12/26/18 09:10 Dose: 100 mg Discontinued Medications Chlordiazepoxide HCl (Librium) 10 mg PO .TID [facility] Chlordiazepoxide HCl (Librium) 10 mg PO TID [facility] Last Admin: 12/26/18 19:07 Dose: Not Given Chlordiazepoxide HCl (Librium) 10 mg PO TID [facility] Chlordiazepoxide HCl (Librium) Confirm Administered Dose 10 mg .ROUTE .STK-MED ONE Stop: 12/26/18 15:40 Last Admin: 12/26/18 15:44 Dose: 10 mg Multivitamins/Minerals 10 ml/Thiamine HCl 100 mg/ Folic Acid 1 mg/ Sodium Chloride 1,011.2 mls @ 999 mls/hr IV ONETIME ONE Stop: 12/26/18 03:31 Last Admin: 12/26/18 02:45 Dose: 999 mls/hr Sodium Chloride (Normal Saline) 1,000 mls @ 125 mls/hr IV ASDIRECTED [facility] Last Admin: 12/27/18 03:01 Dose: 125 mls/hr Sodium Chloride (Normal Saline) 1,000 mls @ 999 mls/hr IV .Bolus ONE Stop: 12/26/18 11:05 Last Admin: 12/26/18 10:05 Dose: 999 mls/hr - Problem List & Annotations (1) Acute alcoholic intoxication in alcoholism with blood level over 0.3 without complication SNOMED Code(s): 991707117 Code(s): F10.220 - ALCOHOL DEPENDENCE WITH INTOXICATION, UNCOMPLICATED Status: Acute Priority: High Current Visit: Yes Annotation/Comment:: Initial blood alcohol level 560 md/dL - My Orders Last 24 Hours: My Active Orders 12/26/18 09:00 Folic Acid 1 mg PO DAILY Thiamine [Vitamin B-1] 100 mg PO DAILY 12/26/18 15:40 chlordiazePOXIDE [Librium] 10 mg PO TID 12/26/18 16:13 Transfer Patient (Change bed) [ADT] Routine 12/26/18 17:17 Cardiac Monitoring Discontinue [RC] Click to Edit 12/26/18 Lunch Regular Diet [DIET] 12/27/18 07:02 CIWAA Assessment [RC] Q4H
[2018-12-27] MEDS: Ibuprofen 400 MG Tab PO PRN (09:57)
[2018-12-27] MEDS: Folic Acid 1 MG Tab PO SCH (10:00)
[2018-12-27] MEDS: Thiamine 100 MG Tab PO SCH (10:00)
[2018-12-27] MEDS ORDERED: Potassium Chloride 20 MEQ Tab.ER PO ONE (15:03)
--- NOTE | 2018-12-27 18:28 | PCM.DCSUM1 ---
<Salvador Ibarra - Last Filed: 12/27/18 18:22> Discharge Summary - Hospital Course Free Text/Narrative:: 28-year-old female admitted for acute alcohol intoxication. She has a history of withdrawal symptoms but no seizures. Patient was unresponsive when presenting to ER and was admitted to the ICU. Her blood alcohol level on admission was 560 mg/dL. CT head was negative and CXR was negative. Patient was on CIWA protocol and started on Librium 10 mg TID. Patient remained hemodynamically stable throughout her stay. Patient and family have reportedly been working on getting patient into an inpatient rehabilitation program. On discharge, patient was instructed to follow-through with plans to go for inpatient rehabilitation to quit drinking alcohol. Patient was in agreement with this and reported that her mother is currently working on this. - Discharge Data Discharge Date: 12/27/18 Discharge Disposition: Home, Self-Care 01 Condition: Fair - Discharge Diagnosis/Problem(s) (1) Acute alcoholic intoxication in alcoholism with blood level over 0.3 without complication SNOMED Code(s): 663668373 ICD Code: F10.220 - ALCOHOL DEPENDENCE WITH INTOXICATION, UNCOMPLICATED Status: Acute Priority: High Problem Details: Initial blood alcohol level 560 md/dL - Patient Instructions Diet: Regular Diet as Tolerated Activity: As Tolerated Notify Provider of: Fever, Increased Pain, Swelling and Redness, Drainage, Nausea and/or Vomiting - Discharge Plan *PRESCRIPTION DRUG MONITORING PROGRAM REVIEWED*: Not Applicable *COPY OF PRESCRIPTION DRUG MONITORING REPORT IN PATIENT GM: Not Applicable Prescriptions/Med Rec: Folic Acid 1 mg PO DAILY 30 Days #30 tablet Thiamine [Vitamin B-1] 100 mg PO DAILY 30 Days #30 tablet Home Medications: Home Meds ALPRAZolam [Alprazolam] 0.5 mg PO DAILY PRN 12/26/18 [History] Zolpidem Tartrate 5 mg PO BEDTIME PRN 12/26/18 [History] Folic Acid 1 mg PO DAILY 30 Days #30 tablet 12/27/18 [Rx] Thiamine [Vitamin B-1] 100 mg PO DAILY 30 Days #30 tablet 12/27/18 [Rx] Patient Handouts: Alcohol Intoxication, [id number], Thiamine, Vitamin B1 tablets, Folic Acid, Vitamin B9 tablets Referrals: [facility] [Outside] Salvador Ibarra MD [Resident] - (Please call [facility] on Friday, December 28, 2018 to arrange for outpatient follow-up appointment.) - Discharge Summary/Plan Comment DC Time >30 min.: No - Patient Data Vitals - Most Recent: Last Vital Signs Temp 97.4 F 12/27/18 16:00 Pulse 91 12/27/18 16:00 Resp 16 12/27/18 16:00 BP 135/88 12/27/18 16:00 Pulse Ox 97 12/27/18 16:00 Weight - Most Recent: 63.503 kg I&O - Last 24 hours: Intake & Output 12/27/18 12/27/18 12/27/18 06:59 14:59 22:59 Intake Total 3475 3210 Output Total 350 1100 Balance 3125 2110 Lab Results - Last 24 hrs: Laboratory Results - last 24 hr 12/27/18 12/27/18 Range/Units 05:53 05:53 WBC 3.67 L (4.0-11.0) K/uL RBC 3.35 L (4.30-5.90) M/uL Hgb 10.3 L (12.0-16.0) g/dL Hct 31.0 L (36.0-46.0) % MCV 92.5 (80.0-98.0) fL MCH 30.7 (27.0-32.0) pg MCHC 33.2 (31.0-37.0) g/dL RDW Std Deviation 52.2 (28.0-62.0) fl RDW Coeff of Jaquan 15 (11.0-15.0) % Plt Count 258 (150-400) K/uL MPV 9.50 (7.40-12.00) fL Neut % (Auto) 31.0 L (48.0-80.0) % Lymph % (Auto) 61.9 H (16.0-40.0) % [place] % (Auto) 5.7 (0.0-15.0) % Eos % (Auto) 1.1 (0.0-7.0) % Baso % (Auto) 0.3 (0.0-1.5) % Neut # (Auto) 1.1 L (1.4-5.7) K/uL Lymph # (Auto) 2.3 (0.6-2.4) K/uL [place] # (Auto) 0.2 (0.0-0.8) K/uL Eos # (Auto) 0.0 (0.0-0.7) K/uL Baso # (Auto) 0.0 (0.0-0.1) K/uL Nucleated RBC % 0.0 /100WBC Nucleated RBCs # 0 K/uL Sodium 141 (136-145) mmol/L Potassium 3.2 L (3.5-5.1) mmol/L Chloride 106 (98-107) mmol/L Carbon Dioxide 26.5 (21.0-32.0) mmol/L BUN 8 (7.0-18.0) mg/dL Creatinine 0.6 (0.6-1.0) mg/dL Est Cr Clr Drug Dosing 125.61 mL/min Estimated GFR (MDRD) > 60.0 ml/min Glucose 89 (74-106) mg/dL Calcium 8.5 (8.5-10.1) mg/dL Total Bilirubin 0.8 (0.2-1.0) mg/dL AST 64 H (15-37) IU/L ALT 46 (14-63) IU/L Alkaline Phosphatase 84 (46-116) U/L Total Protein 5.5 L (6.4-8.2) g/dL Albumin 2.7 L (3.4-5.0) g/dL Globulin 2.8 (2.6-4.0) g/dL Albumin/Globulin Ratio 1.0 (0.9-1.6) Med Orders - Current: Current Medications Alprazolam (Xanax) 0.5 mg PO Q6H PRN PRN Reason: Agitation Last Admin: 12/27/18 11:48 Dose: 0.5 mg Chlordiazepoxide HCl (Librium) 10 mg PO TID [facility] Last Admin: 12/27/18 13:13 Dose: 10 mg Folic Acid (Folic Acid) 1 mg PO DAILY [facility] Last Admin: 12/27/18 10:00 Dose: 1 mg Heparin Sodium (Porcine) (Heparin Sodium) 5,000 units SUBCUT Q8H [facility] Last Admin: 12/27/18 15:19 Dose: 5,000 units Sodium Chloride (Normal Saline) 1,000 mls @ 125 mls/hr IV ASDIRECTED [facility] Last Admin: 12/27/18 10:03 Dose: 125 mls/hr Ibuprofen (Motrin) 400 mg PO Q6H PRN PRN Reason: Pain (mild 1-3) Last Admin: 12/27/18 09:57 Dose: 400 mg Ondansetron HCl (Zofran Odt) 4 mg PO Q6H PRN PRN Reason: nausea, able to take PO Ondansetron HCl (Zofran) 4 mg IVPUSH Q6H PRN PRN Reason: Nausea/Vomiting Sodium Chloride (Saline Flush) 10 ml FLUSH ASDIRECTED PRN PRN Reason: Keep Vein Open Sodium Chloride (Saline Flush) 2.5 ml FLUSH ASDIRECTED PRN PRN Reason: Keep Vein Open Thiamine HCl (Vitamin B-1) 100 mg PO DAILY [facility] Last Admin: 12/27/18 10:00 Dose: 100 mg Discontinued Medications Chlordiazepoxide HCl (Librium) 10 mg PO .TID [facility] Chlordiazepoxide HCl (Librium) 10 mg PO TID [facility] Last Admin: 12/26/18 19:07 Dose: Not Given Chlordiazepoxide HCl (Librium) 10 mg PO TID [facility] Chlordiazepoxide HCl (Librium) Confirm Administered Dose 10 mg .ROUTE .STK-MED ONE Stop: 12/26/18 15:40 Last Admin: 12/26/18 15:44 Dose: 10 mg Multivitamins/Minerals 10 ml/Thiamine HCl 100 mg/ Folic Acid 1 mg/ Sodium Chloride 1,011.2 mls @ 999 mls/hr IV ONETIME ONE Stop: 12/26/18 03:31 Last Admin: 12/26/18 02:45 Dose: 999 mls/hr Sodium Chloride (Normal Saline) 1,000 mls @ 125 mls/hr IV ASDIRECTED [facility] Last Admin: 12/27/18 03:01 Dose: 125 mls/hr Sodium Chloride (Normal Saline) 1,000 mls @ 999 mls/hr IV .Bolus ONE Stop: 12/26/18 11:05 Last Admin: 12/26/18 10:05 Dose: 999 mls/hr Potassium Chloride (Klor-Con M20) 40 meq PO ONETIME ONE Stop: 12/27/18 15:04 Last Admin: 12/27/18 15:18 Dose: 40 meq <Mychal Menendez Last Filed: 12/28/18 07:02> Discharge Summary - Hospital Course Free Text/Narrative:: I have examined the patient independently of medical front desk coordinator, Dr. Stacey MD. I have discussed the case with him. I have reviewed and agree with the examination and plan as outlined by him. Please see orders. I feel at this time the patient could benefit from intensive inpatient alcohol rehabilitation that apparently is being arranged by her family. Unfortunately, I suspect that the patient's prospects for continued sobriety are poor. - Discharge Diagnosis/Problem(s) (1) Acute alcoholic intoxication in alcoholism with blood level over 0.3 without complication SNOMED Code(s): 459139071 ICD Code: F10.220 - ALCOHOL DEPENDENCE WITH INTOXICATION, UNCOMPLICATED Status: Acute Priority: High Problem Details: Initial blood alcohol level 560 md/dL - Patient Data Vitals - Most Recent: Last Vital Signs Temp 36.3 C 12/27/18 16:00 Pulse 91 12/27/18 16:00 Resp 16 12/27/18 16:00 BP 135/88 12/27/18 16:00 Pulse Ox 97 12/27/18 16:00 I&O - Last 24 hours: Intake & Output 12/27/18 12/28/18 12/28/18 22:59 06:59 14:59 Intake Total 3330 Output Total 1100 Balance 2230 Med Orders - Current: Current Medications Discontinued Medications Alprazolam (Xanax) 0.5 mg PO Q6H PRN PRN Reason: Agitation Last Admin: 12/27/18 11:48 Dose: 0.5 mg Chlordiazepoxide HCl (Librium) 10 mg PO .TID [facility] Chlordiazepoxide HCl (Librium) 10 mg PO TID [facility] Last Admin: 12/26/18 19:07 Dose: Not Given Chlordiazepoxide HCl (Librium) 10 mg PO TID [facility] Chlordiazepoxide HCl (Librium) 10 mg PO TID [facility] Last Admin: 12/27/18 13:13 Dose: 10 mg Chlordiazepoxide HCl (Librium) Confirm Administered Dose 10 mg .ROUTE .STK-MED ONE Stop: 12/26/18 15:40 Last Admin: 12/26/18 15:44 Dose: 10 mg Folic Acid (Folic Acid) 1 mg PO DAILY [facility] Last Admin: 12/27/18 10:00 Dose: 1 mg Heparin Sodium (Porcine) (Heparin Sodium) 5,000 units SUBCUT Q8H [facility] Last Admin: 12/27/18 15:19 Dose: 5,000 units Multivitamins/Minerals 10 ml/Thiamine HCl 100 mg/ Folic Acid 1 mg/ Sodium Chloride 1,011.2 mls @ 999 mls/hr IV ONETIME ONE Stop: 12/26/18 03:31 Last Admin: 12/26/18 02:45 Dose: 999 mls/hr Sodium Chloride (Normal Saline) 1,000 mls @ 125 mls/hr IV ASDIRECTED [facility] Last Admin: 12/27/18 03:01 Dose: 125 mls/hr Sodium Chloride (Normal Saline) 1,000 mls @ 125 mls/hr IV ASDIRECTED [facility] Last Admin: 12/27/18 10:03 Dose: 125 mls/hr Sodium Chloride (Normal Saline) 1,000 mls @ 999 mls/hr IV .Bolus ONE Stop: 12/26/18 11:05 Last Admin: 12/26/18 10:05 Dose: 999 mls/hr Ibuprofen (Motrin) 400 mg PO Q6H PRN PRN Reason: Pain (mild 1-3) Last Admin: 12/27/18 09:57 Dose: 400 mg Ondansetron HCl (Zofran Odt) 4 mg PO Q6H PRN PRN Reason: nausea, able to take PO Ondansetron HCl (Zofran) 4 mg IVPUSH Q6H PRN PRN Reason: Nausea/Vomiting Potassium Chloride (Klor-Con M20) 40 meq PO ONETIME ONE Stop: 12/27/18 15:04 Last Admin: 12/27/18 15:18 Dose: 40 meq Sodium Chloride (Saline Flush) 10 ml FLUSH ASDIRECTED PRN PRN Reason: Keep Vein Open Sodium Chloride (Saline Flush) 2.5 ml FLUSH ASDIRECTED PRN PRN Reason: Keep Vein Open Thiamine HCl (Vitamin B-1) 100 mg PO DAILY [facility] Last Admin: 12/27/18 10:00 Dose: 100 mg
== END 2018-12-27 18:00 | disposition home or self-care (01) | DRG 897 ==
LOC: MW.ED 02:24 → MW.ICU 05:35 → MW.MS 12-27 10:42
PROVIDERS: ADMIT Internal Medicine; ATTEND Internal Medicine
PROC: HZ2ZZZZ Detoxification Services for Substance Abuse Treatment (ICD-10-PCS; principal; 2018-12-26)
DX: F10.220 Alcohol dependence with intoxication, uncomplicated (principal); Y90.8 Blood alcohol level of 240 mg/100 ml or more; Z88.2 Allergy status to sulfonamides; Z88.8 Allergy status to other drugs, medicaments and biological substances; Z79.899 Other long term (current) drug therapy; E87.6 Hypokalemia
CPT/HCPCS: 36415; 70450; 70450-26; 71045; 71045-26; 80053; 80305-QW; 81003; 82962; 83735; 84484; 84703; 85025; 85610; 93005; 96361; 96365; 99285-25; A9270-GY; G0480; J1644; J3411; J7040

== ENCOUNTER 2018-12-30 18:53 | Observation (INO) | payer MEDICAID ==
[2018-12-30] MEDS ORDERED: Sodium Chloride 0.9% 10 ML Syringe FLUSH PRN (19:07)
[2018-12-30] MEDS ORDERED: Sodium Chloride 0.9% 2.5 ML Syringe FLUSH PRN (19:07)
[2018-12-30] MEDS ORDERED: Sodium Chloride 0.9% 1,000 ML IV ONE (19:08)
[2018-12-30 19:43] LABS: CHLORIDE,CL 105 mmol/L (98-107); SODIUM,NA 144 mmol/L (136-145)
--- NOTE | 2018-12-30 19:54 | EDM.PDOC ---
ED HPI GENERAL MEDICAL PROBLEM - General Chief Complaint: Drug or Alcohol Abuse Stated Complaint: SPOKE TO NURSE Time Seen by Provider: 12/30/18 19:06 Source of Information: Reports: Patient, Family History Limitations: Reports: No Limitations - History of Present Illness INITIAL COMMENTS - FREE TEXT/NARRATIVE: HISTORY AND PHYSICAL: History of present illness: Patient is a 28-year-old female presents to the ED today by a friend for concern of intoxication. On way to alcohol treatment with a friend who brought her here for intoxication. Patient denies fever, chills, chest pain, shortness of breath, or cough. Denies headache, neck stiff ness, change in vision, syncope, or near syncope. Denies nausea, vomiting, abdominal pain, diarrhea, constipation, or dysuria. Has not noted any blood in urine or stool. Patient has been eating and drinking appropriately. Review of systems: As per history of present illness and below otherwise all systems reviewed and negative. Past medical history: As per history of present illness and as reviewed below otherwise noncontributory. Surgical history: As per history of present illness and as reviewed below otherwise noncontributory. Social history: See social history for further information Family history: As per history of present illness and as reviewed below otherwise noncontributory. Physical exam: General: Patient is asleep, and in no acute distress. She is arousable to both verbal and physical stimuli. Patient laying comfortably on exam table and appears intoxicated. HEENT: Atraumatic, normocephalic, pupils equal and reactive bilaterally, negative for conjunctival pallor or scleral icterus, mucous membranes dry, TMs normal bilaterally, throat clear, neck supple, nontender, trachea midline. No drooling or trismus noted. No meningeal signs. No hot potato voice noted. Lungs: Clear to auscultation, breath sounds equal bilaterally, chest nontender. Heart: S1S2, regular rate and rhythm without overt murmur Abdomen: Soft, nondistended, nontender. Negative for masses or hepatosplenomegaly. Negative for costovertebral tenderness. Pelvis: Stable nontender. Genitourinary: Deferred. Rectal: Deferred. Skin: Intact, warm, dry. No lesions or rashes noted. Extremities: Atraumatic, negative for cords or calf pain. Neurovascular unremarkable. Neuro: Patient does respond to questions/physical stimuli when asked but is sleeping throughout exam, oriented to person, and situation. Cranial nerves II through XII unremarkable. Exam nonfocal. Notes: Dr. Wade verbally involved in patient care. Dr. Florence consult on patient and will admit to ICU Voices understanding and is agreeable to plan of care. Denies any further questions or concerns at this time. Diagnostics: Head CT, CBC, CMP, UA, hCG, salicylate, acetaminophen, TSH, ethanol, urine drug screen, magnesium Therapeutics: NS, Banana bag, Geodon Impression: Alcohol Intoxication Dehydration Plan: 1. Admit to ICU to Dr. Florence Definitive disposition and diagnosis as appropriate pending reevaluation and review of above. - Related Data Allergies Allergy/AdvReac Type Severity Reaction Status Date / Time risperidone [From Risperdal] Allergy Other Verified 12/30/18 19:02 Sulfa (Sulfonamide Allergy Rash Verified 12/30/18 19:02 Antibiotics) Home Meds: Home Meds ALPRAZolam [Alprazolam] 0.5 mg PO DAILY PRN 12/26/18 [History] Zolpidem Tartrate 5 mg PO BEDTIME PRN 12/26/18 [History] Folic Acid 1 mg PO DAILY 30 Days #30 tablet 12/27/18 [Rx] Thiamine [Vitamin B-1] 100 mg PO DAILY 30 Days #30 tablet 12/27/18 [Rx] Past Medical History - Past Health History Medical/Surgical History: Denies Medical/Surgical History Psychiatric History: Reports: Anxiety, Depression - History Comment History Comment: Past medical history not obtainable or reliable secondary to the patient's intoxication Social & Family History - Family History Family Medical History: Noncontributory - Tobacco Use Smoking Status *Q: Unknown Ever Smoked - Caffeine Use Caffeine Use: Reports: None ED ROS GENERAL - Review of Systems Review Of Systems: ROS reveals no pertinent complaints other than HPI. ED EXAM, GENERAL - Physical Exam Exam: See Below (See dictation) Course - Vital Signs Last Recorded V/S: Last Vital Signs Temp 36.2 C 12/30/18 18:58 Pulse 108 H 12/30/18 20:18 Resp 18 12/30/18 18:58 BP 101/66 12/30/18 20:18 Pulse Ox 99 12/30/18 20:18 - Orders/Labs/Meds Orders: Active Orders 24 hr Category Date Time Status Admission Status [Patient Status] [ADT] Stat ADT 12/30/18 20:45 Ordered Cardiac Monitoring [RC] . DIRECTED Care 12/30/18 19:12 Active EKG Documentation Completion [RC] STAT Care 12/30/18 19:07 Active MVI, Adult with Vitamin K [Infuvite Adult] 10 ml Med 12/30/18 20:11 Active Thiamine [Vitamin B-1] 100 mg Folic Acid 1 mg Sodium Chloride 0.9% [Normal Saline] 1,000 ml IV STAT Sodium Chloride 0.9% [Saline Flush] Med 12/30/18 19:07 Active 10 ml FLUSH ASDIRECTED PRN Sodium Chloride 0.9% [Saline Flush] Med 12/30/18 19:07 Active 2.5 ml FLUSH ASDIRECTED PRN Saline Lock Insert [OM.PC] Stat Oth 12/30/18 19:07 Ordered Medication Orders Multivitamins/Minerals 10 ml/Thiamine HCl 100 mg/ Folic Acid 1 mg/ Sodium Chloride 1,011.2 mls @ 999 mls/hr IV STAT ONE Stop: 12/30/18 21:11 Last Admin: 12/30/18 20:36 Dose: 999 mls/hr Sodium Chloride (Saline Flush) 10 ml FLUSH ASDIRECTED PRN PRN Reason: Keep Vein Open Last Admin: 12/30/18 20:07 Dose: 10 ml Sodium Chloride (Saline Flush) 2.5 ml FLUSH ASDIRECTED PRN PRN Reason: Keep Vein Open Last Admin: 12/30/18 20:07 Dose: 2.5 ml Labs: Laboratory Tests 12/30/18 12/30/18 12/30/18 Range/Units 19:00 19:00 19:00 WBC 7.39 (4.0-11.0) K/uL RBC 4.18 L (4.30-5.90) M/uL Hgb 12.9 (12.0-16.0) g/dL Hct 38.7 (36.0-46.0) % MCV 92.6 (80.0-98.0) fL MCH 30.9 (27.0-32.0) pg MCHC 33.3 (31.0-37.0) g/dL RDW Std Deviation 52.8 (28.0-62.0) fl RDW Coeff of Jaquan 16 H (11.0-15.0) % Plt Count 237 (150-400) K/uL MPV 10.20 (7.40-12.00) fL Neut % (Auto) 24.1 L (48.0-80.0) % Lymph % (Auto) 71.3 H (16.0-40.0) % [place] % (Auto) 2.7 (0.0-15.0) % Eos % (Auto) 1.5 (0.0-7.0) % Baso % (Auto) 0.4 (0.0-1.5) % Neut # (Auto) 1.8 (1.4-5.7) K/uL Lymph # (Auto) 5.3 H (0.6-2.4) K/uL [place] # (Auto) 0.2 (0.0-0.8) K/uL Eos # (Auto) 0.1 (0.0-0.7) K/uL Baso # (Auto) 0.0 (0.0-0.1) K/uL Nucleated RBC % 0.0 /100WBC Nucleated RBCs # 0 K/uL Sodium 144 (136-145) mmol/L Potassium 4.5 (3.5-5.1) mmol/L Chloride 105 (98-107) mmol/L Carbon Dioxide 22.9 (21.0-32.0) mmol/L BUN 8 (7.0-18.0) mg/dL Creatinine 0.6 (0.6-1.0) mg/dL Est Cr Clr Drug Dosing TNP Estimated GFR (MDRD) > 60.0 ml/min Glucose 90 (74-106) mg/dL Calcium 9.0 (8.5-10.1) mg/dL Magnesium 1.8 (1.8-2.4) mg/dL Total Bilirubin 0.8 (0.2-1.0) mg/dL AST 71 H (15-37) IU/L ALT 47 (14-63) IU/L Alkaline Phosphatase 99 (46-116) U/L Total Protein 7.6 (6.4-8.2) g/dL Albumin 3.7 (3.4-5.0) g/dL Globulin 3.9 (2.6-4.0) g/dL Albumin/Globulin Ratio 0.9 (0.9-1.6) TSH 3rd Generation 0.76 (0.36-3.74) uIU/mL HCG, Qual NEGATIVE (NEG) Urine Color Urine Appearance Urine pH (5.0-8.0) Ur Specific [place] (1.001-1.035) Urine Protein (NEGATIVE) mg/dL Urine Glucose (UA) (NEGATIVE) mg/dL Urine Ketones (NEGATIVE) mg/dL Urine Occult Blood (NEGATIVE) Urine Nitrite (NEGATIVE) Urine Bilirubin (NEGATIVE) Urine Urobilinogen (<2.0) EU/dL Ur Leukocyte Esterase (NEGATIVE) Salicylates 1.6 (0-20) mg/dL Urine Opiates Screen (NEGATIVE) Ur Oxycodone Screen (NEGATIVE) Urine Methadone Screen (NEGATIVE) Ur Barbiturates Screen (NEGATIVE) Ur Phencyclidine Scrn (NEGATIVE) Ur Amphetamine Screen (NEGATIVE) U Methamphetamines Scrn (NEGATIVE) U Benzodiazepines Scrn (NEGATIVE) U Cocaine Metab Screen (NEGATIVE) U Marijuana (THC) Screen (NEGATIVE) Ethyl Alcohol mg/dL 12/30/18 12/30/18 12/30/18 Range/Units 19:00 19:30 19:30 WBC (4.0-11.0) K/uL RBC (4.30-5.90) M/uL Hgb (12.0-16.0) g/dL Hct (36.0-46.0) % MCV (80.0-98.0) fL MCH (27.0-32.0) pg MCHC (31.0-37.0) g/dL RDW Std Deviation (28.0-62.0) fl RDW Coeff of Jaquan (11.0-15.0) % Plt Count (150-400) K/uL MPV (7.40-12.00) fL Neut % (Auto) (48.0-80.0) % Lymph % (Auto) (16.0-40.0) % [place] % (Auto) (0.0-15.0) % Eos % (Auto) (0.0-7.0) % Baso % (Auto) (0.0-1.5) % Neut # (Auto) (1.4-5.7) K/uL Lymph # (Auto) (0.6-2.4) K/uL [place] # (Auto) (0.0-0.8) K/uL Eos # (Auto) (0.0-0.7) K/uL Baso # (Auto) (0.0-0.1) K/uL Nucleated RBC % /100WBC Nucleated RBCs # K/uL Sodium (136-145) mmol/L Potassium (3.5-5.1) mmol/L Chloride (98-107) mmol/L Carbon Dioxide (21.0-32.0) mmol/L BUN (7.0-18.0) mg/dL Creatinine (0.6-1.0) mg/dL Est Cr Clr Drug Dosing Estimated GFR (MDRD) ml/min Glucose (74-106) mg/dL Calcium (8.5-10.1) mg/dL Magnesium (1.8-2.4) mg/dL Total Bilirubin (0.2-1.0) mg/dL AST (15-37) IU/L ALT (14-63) IU/L Alkaline Phosphatase (46-116) U/L Total Protein (6.4-8.2) g/dL Albumin (3.4-5.0) g/dL Globulin (2.6-4.0) g/dL Albumin/Globulin Ratio (0.9-1.6) TSH 3rd Generation (0.36-3.74) uIU/mL HCG, Qual (NEG) Urine Color YELLOW Urine Appearance CLEAR Urine pH 6.0 (5.0-8.0) Ur Specific [place] 1.010 (1.001-1.035) Urine Protein NEGATIVE (NEGATIVE) mg/dL Urine Glucose (UA) NEGATIVE (NEGATIVE) mg/dL Urine Ketones NEGATIVE (NEGATIVE) mg/dL Urine Occult Blood NEGATIVE (NEGATIVE) Urine Nitrite NEGATIVE (NEGATIVE) Urine Bilirubin NEGATIVE (NEGATIVE) Urine Urobilinogen 0.2 (<2.0) EU/dL Ur Leukocyte Esterase NEGATIVE (NEGATIVE) Salicylates (0-20) mg/dL Urine Opiates Screen NEGATIVE (NEGATIVE) Ur Oxycodone Screen NEGATIVE (NEGATIVE) Urine Methadone Screen NEGATIVE (NEGATIVE) Ur Barbiturates Screen NEGATIVE (NEGATIVE) Ur Phencyclidine Scrn NEGATIVE (NEGATIVE) Ur Amphetamine Screen NEGATIVE (NEGATIVE) U Methamphetamines Scrn NEGATIVE (NEGATIVE) U Benzodiazepines Scrn POSITIVE (NEGATIVE) U Cocaine Metab Screen NEGATIVE (NEGATIVE) U Marijuana (THC) Screen NEGATIVE (NEGATIVE) Ethyl Alcohol 537 mg/dL Meds: Medications Generic Name Dose Route Start Last Admin Trade Name Freq PRN Reason Stop Dose Admin Multivitamins/Minerals 10 ml/ 1,011.2 mls @ 999 mls/hr 12/30/18 20:11 20:36 Thiamine HCl 100 mg/ Folic IV 12/30/18 21:11 999 mls/hr Acid 1 mg/ Sodium Chloride STAT ONE Administration Sodium Chloride 10 ml 12/30/18 19:07 12/30/18 20:07 Saline Flush FLUSH 10 ml ASDIRECTED PRN Administration Keep Vein Open Sodium Chloride 2.5 ml 12/30/18 19:07 12/30/18 20:07 Saline Flush FLUSH 2.5 ml ASDIRECTED PRN Administration Keep Vein Open Discontinued Medications Generic Name Dose Route Start Last Admin Trade Name Freq PRN Reason Stop Dose Admin Sodium Chloride 1,000 mls @ 999 mls/hr 12/30/18 19:08 12/30/18 19:00 Normal Saline IV 12/30/18 20:08 999 mls/hr .Bolus ONE Administration Sterile Water Confirm 12/30/18 20:35 Sterile Water For Injection Administered 12/30/18 20:36 Dose 20 mls @ as directed .ROUTE .STK-MED ONE Sterile Water 1.2 ml 12/30/18 20:33 Sterile Water For Injection INJECT 12/30/18 20:34 ONETIME ONE Ziprasidone 20 mg 12/30/18 20:33 Geodon IM 12/30/18 20:34 ONETIME ONE Ziprasidone Confirm 12/30/18 20:35 Geodon Administered 12/30/18 20:36 Dose 20 mg .ROUTE .STK-MED ONE Departure - Departure Time of Disposition: 20:48 Disposition: Refer to Observation Clinical Impression: Dehydration Alcohol intoxication Qualifiers: Complication of substance-induced condition: with unspecified complication Qualified Code(s): F10.929 - Alcohol use, unspecified with intoxication, unspecified - Discharge Information - My Orders Last 24 Hours: My Active Orders 12/30/18 19:07 EKG Documentation Completion [RC] STAT Sodium Chloride 0.9% [Saline Flush] 10 ml FLUSH ASDIRECTED PRN Sodium Chloride 0.9% [Saline Flush] 2.5 ml FLUSH ASDIRECTED PRN Saline Lock Insert [OM.PC] Stat 12/30/18 19:12 Cardiac Monitoring [RC] . DIRECTED 12/30/18 20:11 MVI, Adult with Vitamin K [Infuvite Adult] 10 ml Thiamine [Vitamin B-1] 100 mg Folic Acid 1 mg Sodium Chloride 0.9% [Normal Saline] 1,000 ml IV STAT 12/30/18 20:45 Admission Status [Patient Status] [ADT] Stat - Assessment/Plan Last 24 Hours: My Active Orders 12/30/18 19:07 EKG Documentation Completion [RC] STAT Sodium Chloride 0.9% [Saline Flush] 10 ml FLUSH ASDIRECTED PRN Sodium Chloride 0.9% [Saline Flush] 2.5 ml FLUSH ASDIRECTED PRN Saline Lock Insert [OM.PC] Stat 12/30/18 19:12 Cardiac Monitoring [RC] . DIRECTED 12/30/18 20:11 MVI, Adult with Vitamin K [Infuvite Adult] 10 ml Thiamine [Vitamin B-1] 100 mg Folic Acid 1 mg Sodium Chloride 0.9% [Normal Saline] 1,000 ml IV STAT 12/30/18 20:45 Admission Status [Patient Status] [ADT] Stat
[2018-12-30] MEDS ORDERED: MVI, Adult with Vitamin K 10 ML, Thiamine 100 MG, Folic Acid 1 MG in Sodium Chloride 0.... IV ONE ×4 (20:11)
--- NOTE | 2018-12-30 20:24 | CT ---
INDICATION: Altered mental status. Patient was found in her driveway passed out TECHNIQUE: CT Head without i.v. contrast. COMPARISON: 12/26/18 FINDINGS: CSF space: The ventricles are normal for age. Brain: No evidence of mass, acute infarction or hemorrhage is seen. No mass-effect or midline shift is seen. The brain parenchyma is otherwise normal in appearance with preservation of the cesar-white matter junction. Calvarium: The visualized paranasal sinuses are well aerated. The mastoid air cells are clear. The visualized orbits are grossly unremarkable. The calvarium is unremarkable in appearance with no fractures identified. IMPRESSION: 1. No evidence of acute infarction, intracranial hemorrhage, or mass-effect seen. Please note that all CT scans at this facility use dose modulation, iterative reconstruction, and/or weight-based dosing when appropriate to reduce radiation dose to as low as reasonably achievable. Dictated by: Benny Euceda MD @ 12/30/2018 20:23:01 (Electronically Signed)
[2018-12-30] MEDS ORDERED: Ziprasidone Mesylate 20 MG Vial IM ONE (20:33)
[2018-12-30] MEDS ORDERED: Water For Injection, Sterile 20 ML SDV INJECT ONE (20:33)
[2018-12-30] MEDS ORDERED: Water For Injection, Sterile 20 ML ONE (20:35)
[2018-12-30] MEDS ORDERED: Ziprasidone Mesylate 20 MG Vial ONE (20:35)
[2018-12-30] MEDS: Sodium Chloride 0.9% 1,000 ML IV SCH (21:35)
--- NOTE | 2018-12-30 22:36 | PN ---
THC Physician - Brief Progress [id number]/25/2019 22:31[facility] Javier Pacheco, [place] - DELPHINE (KAREN) - MWElvi [facility] CENTERShanta SANDERS of Service 12/30/2018 22:31HPI/Events of Note Case discussed with RN. 28 year old F admitted with EtOH intoxication. On CIWA protocol. 104/ 63 80s 96% no focal neuro deficits, protecting her airwayRecs include: hemodynamic monitoring, s upplemental O2 PRN, GI and DVT prophylaxis, monitor temps WBCs, replace lytes as needed, glycemic mon itoring, pain control, neuro checks, CIWA protocol, MVI/folate/thiamine, psch/detox eval.Intervention s Minor-Communication with other healthcare providers and/or family
--- NOTE | 2018-12-30 22:48 | PCM.HP.2 ---
H&P History of Present Illness - General Date of Service: 12/30/18 Admit Problem/Dx: Admission Diagnosis/Problem Admission Diagnosis/Problem Alcohol intoxication - History of Present Illness Initial Comments - Free Text/Narative: 28 yo female who was brought to EMS by friend due to acute alcohol intoxication. It was reported to me by ED the patient on admission appeared intoxicated but was answering questions and awake. Patient was given Geodon and sent to the ICU. On my interview patient is lethargic and not answering questions. - Related Data Allergies/Adverse Reactions: Allergies Allergy/AdvReac Type Severity Reaction Status Date / Time risperidone [From Risperdal] Allergy Other Verified 12/31/18 10:02 Sulfa (Sulfonamide Allergy Rash Verified 12/31/18 10:02 Antibiotics) Home Medications: Home Meds Folic Acid 1 mg PO DAILY 30 Days #30 tablet 12/27/18 [Rx] Thiamine [Vitamin B-1] 100 mg PO DAILY 30 Days #30 tablet 12/27/18 [Rx] Past Medical History - Past Health History Medical/Surgical History: Denies Medical/Surgical History Psychiatric History: Reports: Anxiety, Depression - History Comment History Comment: Past medical history not obtainable or reliable secondary to the patient's intoxication Social & Family History - Family History Family Medical History: Noncontributory - Tobacco Use Smoking Status *Q: Unknown Ever Smoked - Caffeine Use Caffeine Use: Reports: None H&P Review of Systems - Review of Systems: Review Of Systems: Unable To Obtain Exam - Exam Exam: See Below - Vital Signs Vital Signs: Last Vital Signs Temp 36.4 C 12/30/18 21:22 Pulse 108 H 12/30/18 20:18 Resp 14 12/30/18 22:00 BP 104/63 12/30/18 22:00 Pulse Ox 97 12/30/18 22:00 Weight: 59 kg - Exam General: Lethargic HEENT: Mucosa Moist & [place] Lungs: Clear to Auscultation, Normal Respiratory Effort Cardiovascular: Regular Rate, Regular Rhythm GI/Abdominal Exam: Normal Bowel Sounds, Soft, Non-Tender Extremities: Non-Tender, No Pedal Edema Skin: Warm, Dry, Intact - Patient Data Lab Results Last 24 hrs: Laboratory Results - last 24 hr 12/30/18 12/30/18 12/30/18 Range/Units 19:00 19:00 19:00 WBC 7.39 (4.0-11.0) K/uL RBC 4.18 L (4.30-5.90) M/uL Hgb 12.9 (12.0-16.0) g/dL Hct 38.7 (36.0-46.0) % MCV 92.6 (80.0-98.0) fL MCH 30.9 (27.0-32.0) pg MCHC 33.3 (31.0-37.0) g/dL RDW Std Deviation 52.8 (28.0-62.0) fl RDW Coeff of Jaquan 16 H (11.0-15.0) % Plt Count 237 (150-400) K/uL MPV 10.20 (7.40-12.00) fL Neut % (Auto) 24.1 L (48.0-80.0) % Lymph % (Auto) 71.3 H (16.0-40.0) % [place] % (Auto) 2.7 (0.0-15.0) % Eos % (Auto) 1.5 (0.0-7.0) % Baso % (Auto) 0.4 (0.0-1.5) % Neut # (Auto) 1.8 (1.4-5.7) K/uL Lymph # (Auto) 5.3 H (0.6-2.4) K/uL [place] # (Auto) 0.2 (0.0-0.8) K/uL Eos # (Auto) 0.1 (0.0-0.7) K/uL Baso # (Auto) 0.0 (0.0-0.1) K/uL Nucleated RBC % 0.0 /100WBC Nucleated RBCs # 0 K/uL Sodium 144 (136-145) mmol/L Potassium 4.5 (3.5-5.1) mmol/L Chloride 105 (98-107) mmol/L Carbon Dioxide 22.9 (21.0-32.0) mmol/L BUN 8 (7.0-18.0) mg/dL Creatinine 0.6 (0.6-1.0) mg/dL Est Cr Clr Drug Dosing TNP Estimated GFR (MDRD) > 60.0 ml/min Glucose 90 (74-106) mg/dL Calcium 9.0 (8.5-10.1) mg/dL Magnesium 1.8 (1.8-2.4) mg/dL Total Bilirubin 0.8 (0.2-1.0) mg/dL AST 71 H (15-37) IU/L ALT 47 (14-63) IU/L Alkaline Phosphatase 99 (46-116) U/L Total Protein 7.6 (6.4-8.2) g/dL Albumin 3.7 (3.4-5.0) g/dL Globulin 3.9 (2.6-4.0) g/dL Albumin/Globulin Ratio 0.9 (0.9-1.6) TSH 3rd Generation 0.76 (0.36-3.74) uIU/mL HCG, Qual NEGATIVE (NEG) Urine Color Urine Appearance Urine pH (5.0-8.0) Ur Specific [place] (1.001-1.035) Urine Protein (NEGATIVE) mg/dL Urine Glucose (UA) (NEGATIVE) mg/dL Urine Ketones (NEGATIVE) mg/dL Urine Occult Blood (NEGATIVE) Urine Nitrite (NEGATIVE) Urine Bilirubin (NEGATIVE) Urine Urobilinogen (<2.0) EU/dL Ur Leukocyte Esterase (NEGATIVE) Salicylates 1.6 (0-20) mg/dL Urine Opiates Screen (NEGATIVE) Ur Oxycodone Screen (NEGATIVE) Urine Methadone Screen (NEGATIVE) Ur Barbiturates Screen (NEGATIVE) Ur Phencyclidine Scrn (NEGATIVE) Ur Amphetamine Screen (NEGATIVE) U Methamphetamines Scrn (NEGATIVE) U Benzodiazepines Scrn (NEGATIVE) U Cocaine Metab Screen (NEGATIVE) U Marijuana (THC) Screen (NEGATIVE) Ethyl Alcohol mg/dL 12/30/18 12/30/18 12/30/18 Range/Units 19:00 19:30 19:30 WBC (4.0-11.0) K/uL RBC (4.30-5.90) M/uL Hgb (12.0-16.0) g/dL Hct (36.0-46.0) % MCV (80.0-98.0) fL MCH (27.0-32.0) pg MCHC (31.0-37.0) g/dL RDW Std Deviation (28.0-62.0) fl RDW Coeff of Jaquan (11.0-15.0) % Plt Count (150-400) K/uL MPV (7.40-12.00) fL Neut % (Auto) (48.0-80.0) % Lymph % (Auto) (16.0-40.0) % [place] % (Auto) (0.0-15.0) % Eos % (Auto) (0.0-7.0) % Baso % (Auto) (0.0-1.5) % Neut # (Auto) (1.4-5.7) K/uL Lymph # (Auto) (0.6-2.4) K/uL [place] # (Auto) (0.0-0.8) K/uL Eos # (Auto) (0.0-0.7) K/uL Baso # (Auto) (0.0-0.1) K/uL Nucleated RBC % /100WBC Nucleated RBCs # K/uL Sodium (136-145) mmol/L Potassium (3.5-5.1) mmol/L Chloride (98-107) mmol/L Carbon Dioxide (21.0-32.0) mmol/L BUN (7.0-18.0) mg/dL Creatinine (0.6-1.0) mg/dL Est Cr Clr Drug Dosing Estimated GFR (MDRD) ml/min Glucose (74-106) mg/dL Calcium (8.5-10.1) mg/dL Magnesium (1.8-2.4) mg/dL Total Bilirubin (0.2-1.0) mg/dL AST (15-37) IU/L ALT (14-63) IU/L Alkaline Phosphatase (46-116) U/L Total Protein (6.4-8.2) g/dL Albumin (3.4-5.0) g/dL Globulin (2.6-4.0) g/dL Albumin/Globulin Ratio (0.9-1.6) TSH 3rd Generation (0.36-3.74) uIU/mL HCG, Qual (NEG) Urine Color YELLOW Urine Appearance CLEAR Urine pH 6.0 (5.0-8.0) Ur Specific [place] 1.010 (1.001-1.035) Urine Protein NEGATIVE (NEGATIVE) mg/dL Urine Glucose (UA) NEGATIVE (NEGATIVE) mg/dL Urine Ketones NEGATIVE (NEGATIVE) mg/dL Urine Occult Blood NEGATIVE (NEGATIVE) Urine Nitrite NEGATIVE (NEGATIVE) Urine Bilirubin NEGATIVE (NEGATIVE) Urine Urobilinogen 0.2 (<2.0) EU/dL Ur Leukocyte Esterase NEGATIVE (NEGATIVE) Salicylates (0-20) mg/dL Urine Opiates Screen NEGATIVE (NEGATIVE) Ur Oxycodone Screen NEGATIVE (NEGATIVE) Urine Methadone Screen NEGATIVE (NEGATIVE) Ur Barbiturates Screen NEGATIVE (NEGATIVE) Ur Phencyclidine Scrn NEGATIVE (NEGATIVE) Ur Amphetamine Screen NEGATIVE (NEGATIVE) U Methamphetamines Scrn NEGATIVE (NEGATIVE) U Benzodiazepines Scrn POSITIVE (NEGATIVE) U Cocaine Metab Screen NEGATIVE (NEGATIVE) U Marijuana (THC) Screen NEGATIVE (NEGATIVE) Ethyl Alcohol 537 mg/dL Result Diagrams: 12/30/18 19:00 12/30/18 19:00 Problem List Initiated/Reviewed/Updated: Yes Orders Last 24hrs: Active Orders 24 hr Category Date Time Status Admission Status [Patient Status] [ADT] Stat ADT 12/30/18 20:52 Active Sodium Chloride 0.9% [Normal Saline] 1,000 ml Med 12/30/18 21:30 Active IV ASDIRECTED Sodium Chloride 0.9% [Saline Flush] Med 12/30/18 19:07 Active 10 ml FLUSH ASDIRECTED PRN Sodium Chloride 0.9% [Saline Flush] Med 12/30/18 19:07 Active 2.5 ml FLUSH ASDIRECTED PRN Saline Lock Insert [OM.PC] Stat Oth 12/30/18 19:07 Ordered Medication Orders Sodium Chloride (Normal Saline) 1,000 mls @ 125 mls/hr IV ASDIRECTED MAGO Last Admin: 12/30/18 21:35 Dose: 125 mls/hr Sodium Chloride (Saline Flush) 10 ml FLUSH ASDIRECTED PRN PRN Reason: Keep Vein Open Last Admin: 12/30/18 20:07 Dose: 10 ml Sodium Chloride (Saline Flush) 2.5 ml FLUSH ASDIRECTED PRN PRN Reason: Keep Vein Open Last Admin: 12/30/18 20:07 Dose: 2.5 ml Assessment/Plan Comment:: 28 yo female admitted for acute alcohol intoxication. We will continue to treat supportively and closely monitor.
[2018-12-31] MEDS: Sodium Chloride 0.9% 1,000 ML IV SCH (05:39)
--- NOTE | 2018-12-31 09:51 | PN ---
MOSHE Physician - Brief Progress [id number]/26/2019 09:43[facility], [place] - DELPHINE (KAREN) - DANITZAN FEShanta SANDERS of Service 12/31/2018 09:43HPI/Events of Note EICU progress note:28-year-old female admitted for alcohol intoxication.Currently patient is on her cell phoneVital signs: Heart rate 103 respiratory 20 pressure 102/56EICU assessment:Alcohol intox ication versus poisoning with 537 mg/dL alcohol level on arrivalAlcohol abuse historyAlso on Xanax ou tpatient with zolpidem as needed for questionable sleep disordereICU recommendations:Would inform pha rmacy and writing attending for both prescriptions of Xanax and zolpidem of patient's current admissi on status and alcohol abuse. Would also not rewrite for either medication as it may be lethal with a lcohol ingestion.Patient is seeing psychiatry Would not allow patient to drive on either Xanax or zol pidem.patient stable currently from eicu standpointplease call for any changes/ recsInterventions Min or-Communication with other healthcare providers and/or family, Routine modifications to care plan (e .g. PRN medications for pain, fever)Electronically Signed by: MOIRA MALDONADO) on 12/07 09:50
[2018-12-31] MEDS ORDERED: LORazepam 2 MG/ML SDV IV PRN (11:20)
[2018-12-31] MEDS ORDERED: LORazepam 1 MG Tab PO PRN (11:21)
--- NOTE | 2018-12-31 11:25 | PCM.DCSUM1 ---
<Annemarie Chery - Last Filed: 12/31/18 12:01> Discharge Summary - Hospital Course HPI Initial Comments: Admission Date: 12/30/18 Discharge Date: 12/31/18 Admission Diagnosis: 1. Alcohol intoxication Discharge Diagnosis: 1. Alcohol intoxication Procedures: None Consults: None Hospital Course: The patient is a 28-year-old female who was dropped off by a friend in the ER with acute alcohol intoxication on their way to rehabilitation. In the ER, initial lab work showed CBC, CMP, UA, hCG, TSH and magnesium within normal limits. Ethanol was 543 and UDS was positive for benzos. CT of the head was negative for any acute intracranial findings. In the ER she was given IV fluids, banana bag, and Geodon. She was admitted to ICU for observation. She was continued on IV fluids and placed on CIWA/ Ativan protocol for withdrawal symptoms. She was monitored on telemetry. The ER provider had placed a psych hold on her for her intoxication. Psych was consulted and didn't deem it necessary to evaluate her as she was not actively suicidal or homicidal and was going to rehab after discharge. It was recommended to the patient, that she stopped taking Xanax and Ambien as this can be dangerous in combination with alcohol. Vitals were stable throughout admission and by day of discharge patient wanted to go so she could make it to rehab. Disposition: Home with plans to drive to rehab in [place] Discharge Condition: vitals stable, tolerating oral diet, ambulating without difficulty, symptom improvement Discharge Instructions: regular diet as tolerated, activity as tolerated, take medications as prescribed. Discontinue ambien and xanax. Stop drinking alcohol. Symptoms to report to physician include fever/chills, chest pain, shortness of breath, abdominal pain, erythema, drainage/discharge, signs/ symptoms of withdrawal which include tremor, sweating, or seizures, or not improving as expected. Discharge Medications: Folic Acid 1 mg PO DAILY 30 Days #30 tablet 12/27/18 [Rx] Thiamine [Vitamin B-1] 100 mg PO DAILY 30 Days #30 tablet 12/27/18 [Rx] Follow-up: 1. Rehab in [place], [place] Diagnosis: Stroke: No - Discharge Data Discharge Date: 12/31/18 Discharge Disposition: Home, Self-Care 01 Condition: Fair - Patient Instructions Diet: Usual Diet as Tolerated, No Alcoholic Beverages Activity: As Tolerated Driving: Do Not Drive Showering/Bathing: May Shower Notify Provider of: Fever, Increased Pain, Swelling and Redness, Drainage, Nausea and/or Vomiting Other/Special Instructions: Additional symptoms include chest pain, shortness of breath, abdoimnal pain, withdrawl symptoms such as shakiness, sweating, or seizure. - Discharge Plan *PRESCRIPTION DRUG MONITORING PROGRAM REVIEWED*: No *COPY OF PRESCRIPTION DRUG MONITORING REPORT IN PATIENT GM: No Home Medications: Home Meds Folic Acid 1 mg PO DAILY 30 Days #30 tablet 12/27/18 [Rx] Thiamine [Vitamin B-1] 100 mg PO DAILY 30 Days #30 tablet 12/27/18 [Rx] Patient Handouts: Alcohol Use Disorder, Alcohol Intoxication, [id number] - Discharge Summary/Plan Comment DC Time >30 min.: No - Patient Data Vitals - Most Recent: Last Vital Signs Temp 97.9 F 12/31/18 08:00 Pulse 104 H 12/31/18 08:00 Resp 15 12/31/18 10:00 BP 113/71 12/31/18 10:00 Pulse Ox 99 12/31/18 10:00 Weight - Most Recent: 64.773 kg I&O - Last 24 hours: Intake & Output 12/30/18 12/31/18 12/31/18 22:59 06:59 14:59 Intake Total 1000 2300 Output Total 1100 Balance 1000 1200 Lab Results - Last 24 hrs: Laboratory Results - last 24 hr 12/30/18 12/30/18 12/30/18 Range/Units 19:00 19:00 19:00 WBC 7.39 (4.0-11.0) K/uL RBC 4.18 L (4.30-5.90) M/uL Hgb 12.9 (12.0-16.0) g/dL Hct 38.7 (36.0-46.0) % MCV 92.6 (80.0-98.0) fL MCH 30.9 (27.0-32.0) pg MCHC 33.3 (31.0-37.0) g/dL RDW Std Deviation 52.8 (28.0-62.0) fl RDW Coeff of Jaquan 16 H (11.0-15.0) % Plt Count 237 (150-400) K/uL MPV 10.20 (7.40-12.00) fL Neut % (Auto) 24.1 L (48.0-80.0) % Lymph % (Auto) 71.3 H (16.0-40.0) % [place] % (Auto) 2.7 (0.0-15.0) % Eos % (Auto) 1.5 (0.0-7.0) % Baso % (Auto) 0.4 (0.0-1.5) % Neut # (Auto) 1.8 (1.4-5.7) K/uL Lymph # (Auto) 5.3 H (0.6-2.4) K/uL [place] # (Auto) 0.2 (0.0-0.8) K/uL Eos # (Auto) 0.1 (0.0-0.7) K/uL Baso # (Auto) 0.0 (0.0-0.1) K/uL Nucleated RBC % 0.0 /100WBC Nucleated RBCs # 0 K/uL Sodium 144 (136-145) mmol/L Potassium 4.5 (3.5-5.1) mmol/L Chloride 105 (98-107) mmol/L Carbon Dioxide 22.9 (21.0-32.0) mmol/L BUN 8 (7.0-18.0) mg/dL Creatinine 0.6 (0.6-1.0) mg/dL Est Cr Clr Drug Dosing TNP Estimated GFR (MDRD) > 60.0 ml/min Glucose 90 (74-106) mg/dL Calcium 9.0 (8.5-10.1) mg/dL Magnesium 1.8 (1.8-2.4) mg/dL Total Bilirubin 0.8 (0.2-1.0) mg/dL AST 71 H (15-37) IU/L ALT 47 (14-63) IU/L Alkaline Phosphatase 99 (46-116) U/L Total Protein 7.6 (6.4-8.2) g/dL Albumin 3.7 (3.4-5.0) g/dL Globulin 3.9 (2.6-4.0) g/dL Albumin/Globulin Ratio 0.9 (0.9-1.6) TSH 3rd Generation 0.76 (0.36-3.74) uIU/mL HCG, Qual NEGATIVE (NEG) Urine Color Urine Appearance Urine pH (5.0-8.0) Ur Specific [place] (1.001-1.035) Urine Protein (NEGATIVE) mg/dL Urine Glucose (UA) (NEGATIVE) mg/dL Urine Ketones (NEGATIVE) mg/dL Urine Occult Blood (NEGATIVE) Urine Nitrite (NEGATIVE) Urine Bilirubin (NEGATIVE) Urine Urobilinogen (<2.0) EU/dL Ur Leukocyte Esterase (NEGATIVE) Salicylates 1.6 (0-20) mg/dL Urine Opiates Screen (NEGATIVE) Ur Oxycodone Screen (NEGATIVE) Urine Methadone Screen (NEGATIVE) Ur Barbiturates Screen (NEGATIVE) Ur Phencyclidine Scrn (NEGATIVE) Ur Amphetamine Screen (NEGATIVE) U Methamphetamines Scrn (NEGATIVE) U Benzodiazepines Scrn (NEGATIVE) U Cocaine Metab Screen (NEGATIVE) U Marijuana (THC) Screen (NEGATIVE) Ethyl Alcohol mg/dL 12/30/18 12/30/18 12/30/18 Range/Units 19:00 19:30 19:30 WBC (4.0-11.0) K/uL RBC (4.30-5.90) M/uL Hgb (12.0-16.0) g/dL Hct (36.0-46.0) % MCV (80.0-98.0) fL MCH (27.0-32.0) pg MCHC (31.0-37.0) g/dL RDW Std Deviation (28.0-62.0) fl RDW Coeff of Jaquan (11.0-15.0) % Plt Count (150-400) K/uL MPV (7.40-12.00) fL Neut % (Auto) (48.0-80.0) % Lymph % (Auto) (16.0-40.0) % [place] % (Auto) (0.0-15.0) % Eos % (Auto) (0.0-7.0) % Baso % (Auto) (0.0-1.5) % Neut # (Auto) (1.4-5.7) K/uL Lymph # (Auto) (0.6-2.4) K/uL [place] # (Auto) (0.0-0.8) K/uL Eos # (Auto) (0.0-0.7) K/uL Baso # (Auto) (0.0-0.1) K/uL Nucleated RBC % /100WBC Nucleated RBCs # K/uL Sodium (136-145) mmol/L Potassium (3.5-5.1) mmol/L Chloride (98-107) mmol/L Carbon Dioxide (21.0-32.0) mmol/L BUN (7.0-18.0) mg/dL Creatinine (0.6-1.0) mg/dL Est Cr Clr Drug Dosing Estimated GFR (MDRD) ml/min Glucose (74-106) mg/dL Calcium (8.5-10.1) mg/dL Magnesium (1.8-2.4) mg/dL Total Bilirubin (0.2-1.0) mg/dL AST (15-37) IU/L ALT (14-63) IU/L Alkaline Phosphatase (46-116) U/L Total Protein (6.4-8.2) g/dL Albumin (3.4-5.0) g/dL Globulin (2.6-4.0) g/dL Albumin/Globulin Ratio (0.9-1.6) TSH 3rd Generation (0.36-3.74) uIU/mL HCG, Qual (NEG) Urine Color YELLOW Urine Appearance CLEAR Urine pH 6.0 (5.0-8.0) Ur Specific [place] 1.010 (1.001-1.035) Urine Protein NEGATIVE (NEGATIVE) mg/dL Urine Glucose (UA) NEGATIVE (NEGATIVE) mg/dL Urine Ketones NEGATIVE (NEGATIVE) mg/dL Urine Occult Blood NEGATIVE (NEGATIVE) Urine Nitrite NEGATIVE (NEGATIVE) Urine Bilirubin NEGATIVE (NEGATIVE) Urine Urobilinogen 0.2 (<2.0) EU/dL Ur Leukocyte Esterase NEGATIVE (NEGATIVE) Salicylates (0-20) mg/dL Urine Opiates Screen NEGATIVE (NEGATIVE) Ur Oxycodone Screen NEGATIVE (NEGATIVE) Urine Methadone Screen NEGATIVE (NEGATIVE) Ur Barbiturates Screen NEGATIVE (NEGATIVE) Ur Phencyclidine Scrn NEGATIVE (NEGATIVE) Ur Amphetamine Screen NEGATIVE (NEGATIVE) U Methamphetamines Scrn NEGATIVE (NEGATIVE) U Benzodiazepines Scrn POSITIVE (NEGATIVE) U Cocaine Metab Screen NEGATIVE (NEGATIVE) U Marijuana (THC) Screen NEGATIVE (NEGATIVE) Ethyl Alcohol 537 mg/dL Med Orders - Current: Current Medications Sodium Chloride (Normal Saline) 1,000 mls @ 125 mls/hr IV ASDIRECTED MAGO Last Admin: 12/31/18 05:39 Dose: 125 mls/hr Lorazepam (Ativan) 0 mg IV Q4H PRN; Protocol PRN Reason: Withdrawal Symptoms Lorazepam (Ativan) 0 mg PO Q4H PRN; Protocol PRN Reason: Withdrawal Symptoms Sodium Chloride (Saline Flush) 10 ml FLUSH ASDIRECTED PRN PRN Reason: Keep Vein Open Last Admin: 12/30/18 20:07 Dose: 10 ml Sodium Chloride (Saline Flush) 2.5 ml FLUSH ASDIRECTED PRN PRN Reason: Keep Vein Open Last Admin: 12/30/18 20:07 Dose: 2.5 ml Discontinued Medications Sodium Chloride (Normal Saline) 1,000 mls @ 999 mls/hr IV .Bolus ONE Stop: 12/30/18 20:08 Last Admin: 12/30/18 19:00 Dose: 999 mls/hr Multivitamins/Minerals 10 ml/Thiamine HCl 100 mg/ Folic Acid 1 mg/ Sodium Chloride 1,011.2 mls @ 999 mls/hr IV STAT ONE Stop: 12/30/18 21:11 Last Admin: 12/30/18 20:36 Dose: 999 mls/hr Sterile Water (Sterile Water For Injection) Confirm Administered Dose 20 mls @ as directed .ROUTE .STK-MED ONE Stop: 12/30/18 20:36 Last Admin: 12/30/18 20:46 Dose: Not Given Sterile Water (Sterile Water For Injection) 1.2 ml INJECT ONETIME ONE Stop: 12/30/18 20:34 Last Admin: 12/30/18 20:46 Dose: 1.2 ml Ziprasidone (Geodon) 20 mg IM ONETIME ONE Stop: 12/30/18 20:34 Last Admin: 12/30/18 20:44 Dose: 20 mg Ziprasidone (Geodon) Confirm Administered Dose 20 mg .ROUTE .STK-MED ONE Stop: 12/30/18 20:36 Last Admin: 12/30/18 20:46 Dose: Not Given <Clarence Florence J - Last Filed: 01/03/19 10:42> - Patient Data Vitals - Most Recent: Last Vital Signs Temp 36.6 C 12/31/18 08:00 Pulse 104 H 12/31/18 08:00 Resp 16 12/31/18 11:20 BP 108/68 12/31/18 11:20 Pulse Ox 98 12/31/18 11:20 Med Orders - Current: Current Medications Discontinued Medications Sodium Chloride (Normal Saline) 1,000 mls @ 999 mls/hr IV .Bolus ONE Stop: 12/30/18 20:08 Last Admin: 12/30/18 19:00 Dose: 999 mls/hr Multivitamins/Minerals 10 ml/Thiamine HCl 100 mg/ Folic Acid 1 mg/ Sodium Chloride 1,011.2 mls @ 999 mls/hr IV STAT ONE Stop: 12/30/18 21:11 Last Admin: 12/30/18 20:36 Dose: 999 mls/hr Sterile Water (Sterile Water For Injection) Confirm Administered Dose 20 mls @ as directed .ROUTE .STK-MED ONE Stop: 12/30/18 20:36 Last Admin: 12/30/18 20:46 Dose: Not Given Sodium Chloride (Normal Saline) 1,000 mls @ 125 mls/hr IV ASDIRECTED MAGO Last Admin: 12/31/18 05:39 Dose: 125 mls/hr Lorazepam (Ativan) 0 mg IV Q4H PRN; Protocol PRN Reason: Withdrawal Symptoms Lorazepam (Ativan) 0 mg PO Q4H PRN; Protocol PRN Reason: Withdrawal Symptoms Sodium Chloride (Saline Flush) 10 ml FLUSH ASDIRECTED PRN PRN Reason: Keep Vein Open Last Admin: 12/30/18 20:07 Dose: 10 ml Sodium Chloride (Saline Flush) 2.5 ml FLUSH ASDIRECTED PRN PRN Reason: Keep Vein Open Last Admin: 12/30/18 20:07 Dose: 2.5 ml Sterile Water (Sterile Water For Injection) 1.2 ml INJECT ONETIME ONE Stop: 12/30/18 20:34 Last Admin: 12/30/18 20:46 Dose: 1.2 ml Ziprasidone (Geodon) 20 mg IM ONETIME ONE Stop: 12/30/18 20:34 Last Admin: 12/30/18 20:44 Dose: 20 mg Ziprasidone (Geodon) Confirm Administered Dose 20 mg .ROUTE .STK-MED ONE Stop: 12/30/18 20:36 Last Admin: 12/30/18 20:46 Dose: Not Given - Free Text/Narrative Note: I have evaluated the patient. I have discussed findings and treatment plan with resident. I agree with the assessment and plan outlined in the following note. Patient was picked up by friend and plans to meet her Dad in [facility] with plans on driving to [place] for inpatient rehab treatment.
== END 2018-12-31 11:55 | disposition home or self-care (01) ==
LOC: MW.ED 18:53 → MW.ICU 20:45
PROVIDERS: ADMIT Internal Medicine; ATTEND Internal Medicine
DX: F10.129 Alcohol abuse with intoxication, unspecified (principal); F41.9 Anxiety disorder, unspecified; F32.9 Major depressive disorder, single episode, unspecified; Z88.2 Allergy status to sulfonamides; Z88.8 Allergy status to other drugs, medicaments and biological substances; Z79.899 Other long term (current) drug therapy
CPT/HCPCS: 36415; 70450; 80053; 80305; 81003; 83735; 84443; 84703; 85025; 93005; 96361; 96365; 99285; G0480; J3411; J3486; J7040; G0378

== ENCOUNTER 2019-05-12 19:21 | Emergency (ER) | payer SELFPAY ==
--- NOTE | 2019-05-12 20:02 | EDM.PDOC ---
<Vasiliy Velarde - Last Filed: 05/13/19 00:19> ED HPI GENERAL MEDICAL PROBLEM - General Chief Complaint: Drug or Alcohol Abuse Stated Complaint: DRUNK Time Seen by Provider: 05/12/19 19:40 - Related Data Allergies Allergy/AdvReac Type Severity Reaction Status Date / Time risperidone [From Risperdal] Allergy Other Verified 05/12/19 20:32 Sulfa (Sulfonamide Allergy Rash Verified 05/12/19 20:32 Antibiotics) Home Meds: Home Meds Folic Acid 1 mg PO DAILY 30 Days #30 tablet 12/27/18 [Rx] Thiamine [Vitamin B-1] 100 mg PO DAILY 30 Days #30 tablet 12/27/18 [Rx] Course - Vital Signs Last Recorded V/S: Last Vital Signs Temp 97.0 F 05/12/19 19:23 Pulse 111 H 05/13/19 00:00 Resp 16 05/13/19 00:00 BP 125/79 05/13/19 00:00 Pulse Ox 99 05/13/19 00:00 - Orders/Labs/Meds Labs: Laboratory Tests 05/12/19 05/12/19 05/12/19 Range/Units 22:05 22:05 22:05 WBC 7.91 (4.0-11.0) K/uL RBC 4.65 (4.30-5.90) M/uL Hgb 13.6 (12.0-16.0) g/dL Hct 40.1 (36.0-46.0) % MCV 86.2 (80.0-98.0) fL MCH 29.2 (27.0-32.0) pg MCHC 33.9 (31.0-37.0) g/dL RDW Std Deviation 44.0 (28.0-62.0) fl RDW Coeff of Jaquan 14 (11.0-15.0) % Plt Count 200 (150-400) K/uL MPV 10.10 (7.40-12.00) fL Neut % (Auto) 63.4 (48.0-80.0) % Lymph % (Auto) 34.1 (16.0-40.0) % Chambers % (Auto) 2.1 (0.0-15.0) % Eos % (Auto) 0.0 (0.0-7.0) % Baso % (Auto) 0.4 (0.0-1.5) % Neut # (Auto) 5.0 (1.4-5.7) K/uL Lymph # (Auto) 2.7 H (0.6-2.4) K/uL Chambers # (Auto) 0.2 (0.0-0.8) K/uL Eos # (Auto) 0.0 (0.0-0.7) K/uL Baso # (Auto) 0.0 (0.0-0.1) K/uL Nucleated RBC % 0.0 /100WBC Nucleated RBCs # 0 K/uL Sodium 142 (136-145) mmol/L Potassium 4.2 (3.5-5.1) mmol/L Chloride 103 (98-107) mmol/L Carbon Dioxide 22.1 (21.0-32.0) mmol/L BUN 14 (7.0-18.0) mg/dL Creatinine 0.7 (0.6-1.0) mg/dL Est Cr Clr Drug Dosing TNP Estimated GFR (MDRD) > 60.0 ml/min Glucose 94 (74-106) mg/dL Calcium 8.2 L (8.5-10.1) mg/dL Troponin I < 0.050 (0.000-0.056) ng/mL HCG, Qual NEGATIVE (NEG) Ethyl Alcohol 403 mg/dL Meds: Medications Discontinued Medications Generic Name Dose Route Start Last Admin Trade Name Freq PRN Reason Stop Dose Admin Sodium Chloride 1,000 mls @ 1,000 mls/hr 05/12/19 22:57 05/12/19 23:04 Normal Saline IV 05/12/19 23:56 1,000 mls/hr .Bolus ONE Administration Sodium Chloride 1,000 mls @ 1,000 mls/hr 05/12/19 22:57 05/12/19 23:00 Normal Saline IV 05/12/19 23:56 Not Given .Bolus ONE - Re-Assessments/Exams Free Text/Narrative Re-Assessment/Exam: 05/13/19 00:19 Addendum HPI 29-year-old female with a history of EtOH abuse presents after a day of heavy drinking. Patient does not feel comfortable going home due to her heavy drinking. ROS with no recent constitutional symptoms. Exam HR 111, RR 18, BP 113/73, T 36.1C, SaO2 90% on room air. Gen: slurring speech, nontoxic-appearing. Resting comfortably. Intermittently belligerent. HEENT: NC, AT, PEERL, EOMI. Resp: Unlabored respirations with a normal work of breathing. Clear to auscultation bilaterally. Card: Extremities warm and well perfused. Regular rate and rhythm with no murmurs rubs or gallops. GI: Non-distended. : Deferred MSK: No visible deformities, strength and tone without visually appreciable deficit. Neuro: alert and oriented 3, no facial asymmetry, vision and hearing WNL. Heme/Lymph: Deferred Skin: Normal color with no visible lesions (other than noted above). Psych: mood and flat affect. Labs/imaging: CT head: no acute intracranial process. CXR: no acute cardiopulmonary process. WBC 7.9, HB 13.6, sodium 142, potassium 4.2, troponin <0.050, hCG negative, EtOH 403. EKG: SR 121 bpm, no AK segment depressions, QRS 84 ms, QTc 471 ms, no ST segment elevations or depressions, no discordant T wave inversions. MDM Previous chart, nursing note, and vitals reviewed. A: 29-year-old female with a history of EtOH abuse presents after a day of heavy drinking. DDx & Evaluation: patient resting comfortably, slurring speech, and clinically appears intoxicated consistent with her stated history. At times patient is belligerent and throughout was a minimal historian. Patient states she has a history Takasubo cardiomyopathy and vaguely endorses concerned about this. ECG and cardiac enzymes were checked, these were unremarkable. Chest x-ray, CBC, BMP , and test were unremarkable as was the patients CT head. EtOH elevated, no identifiable features toward evaluation with respect to toxic alcohols. Concern for dehydration, 2 L NS given. No evidence of active infection on history or exam, no leukocytosis, no temperature. 00:18 - repeat evaluation with patient resting comfortably, patient with clinical sobriety. No focal complaints. Impression: alcohol intoxication. Departure - Departure Time of Disposition: 00:19 Disposition: Home, Self-Care 01 Clinical Impression: Alcohol intoxication Qualifiers: Complication of substance-induced condition: with unspecified complication Qualified Code(s): F10.929 - Alcohol use, unspecified with intoxication, unspecified - Discharge Information Instructions: Alcohol Intoxication, Chyp-oz-Lrdl Referrals: PCP,Unknown [Primary Care Provider] - Forms: ED Department Discharge Additional Instructions: You were in seen in the [facility] Emergency Department for evaluation of shakiness and weakness after consuming a significant amount of alcohol. At the time of your evaluation you were found to have findings consistent with alcohol intoxication and abuse, however no further complications were noted. Please read and follow all of the instructions below. Please follow up with your primary care physician tomorrow for repeat evaluation further care as needed. When calling for follow-up care, please make the office aware that this follow-up is from your recent emergency room visit. If for any reason you are refused follow-up, please contact the [facility] Emergency Department at and asked to speak to the emergency department charge nurse. Your care today was limited to identifying and treating emergent medical problems only. Many people have subtle differences in their test results that require follow up with their outpatient physician(s) to correctly determine if this represents a normal variation or concerning abnormality with respect to your specific health. The care given to you today was limited to identifying and treating emergent medical problems - you need to request a copy of all of your medical records from today's visit and follow up with your outpatient physician(s) to review both today's visit and your overall health. If you have any new symptoms or if you are at all concerned about your health please return immediately to the emergency department. Prescriptions: If you are uninsured or have financial difficulties with filling your prescription(s), you may consider using a free pharmacy discount service such as [employer] ([employer]) or [employer] ([employer]). These services allow you to search for a medication on your phone (or computer) and obtain a coupon that usually has a significant discount from the list jimenez at a pharmacy. Your physician as well as [facility] does not have a financial relationship with either of these services. You may also wish to speak with your physician to determine if lower cost prescriptions are possible. Obtaining primary care: 1. [facility] provides pediatrics (children), family medicine (children, adults, and some obstetrical care), and internal medicine (adults). Further specialty care is also available. Same day appointments are available. They may be contacted at [phone] and are open Monday through Monday 8 AM to [address] [facility] clinics are located at [facility], [address] [place], [place] [address]. 2. [facility] offers family medicine, internal medicine, womens health, and further specialty care. [facility] may be contacted at [phone]. [facility] is located at [address] [place], [address]. 3. If you have health insurance, please also contact your insurer for a list of accepting providers under your policy, you may contact these providers for further health care. Occupational health: Work related injuries may consider following up with [facility], . Occupational health services are located at [address] [place] [address] and are open Monday through Monday from 7: 30 am to 5:00 pm. Obstetrical and Gynecological Care: [facility], , Monday through Monday 8 AM to 5 PM. [address] [place] [address]. Eyecare: If you have an eye injury you should follow up with your bone worker or with [facility], at [phone] or [phone] , they are located at [address] [place] [address]. Dental Care Enrico Art DDS. [address] [facility] [place], [place]. Ph. [phone] Tru Art DDS MS. [address] [facility] [address], [place], [place]. Ph. [phone] Yousif Boles DDS. 10 05/09 [facility] [place]. Ph. [phone] Phani Jean DDS. [address] [facility] [address] [place], [place]. Ph. [phone] Jose De Jesus Britton DDS PC. [address] [place] [address] [address] [place], [place]. Ph. Phong Gunderson DDS. [address] [facility]. Ph. [phone] [facility]. [address], [place]. Ph. [phone] [facility], [place], [place]. Ph. [phone] [facility] [address] [place] [address]. Ph. [facility]. [address] [place] [address] [address] [place], [place]. Ph. [facility]. [address] [place]. Ph. Sepsis Event Note - Focused Exam Date Exam was Performed: 05/13/19 Time Exam was Performed: 00:19 <Stephanie Severino - Last Filed: 05/16/19 09:54> ED HPI GENERAL MEDICAL PROBLEM - General Source of Information: Reports: Patient History Limitations: Reports: No Limitations - History of Present Illness INITIAL COMMENTS - FREE TEXT/NARRATIVE: HISTORY AND PHYSICAL: History of present illness: Patient is a 29-year-old female who presents to the ED today via EMS for concern of alcohol intoxication. Patient states she has been drinking over the past several hours. Patient denies any other symptoms or concerns. Patient denies suicidal or homicidal ideation. Patient denies fever, chills, chest pain, shortness of breath, or cough. Denies headache, neck stiff ness, change in vision, syncope, or near syncope. Denies nausea, vomiting, abdominal pain, diarrhea, constipation, or dysuria. Has not noted any blood in urine or stool. Patient has been eating and drinking appropriately. Review of systems: As per history of present illness and below otherwise all systems reviewed and negative. Past medical history: As per history of present illness and as reviewed below otherwise noncontributory. Surgical history: As per history of present illness and as reviewed below otherwise noncontributory. Social history: See social history for further information Family history: As per history of present illness and as reviewed below otherwise noncontributory. Physical exam: General: Patient is alert, oriented to person and place but not time, and in no acute distress. Patient laying comfortably on exam table and appears intoxicated. HEENT: Atraumatic, normocephalic, pupils equal and reactive bilaterally, negative for conjunctival pallor or scleral icterus, mucous membranes moist, TMs normal bilaterally, throat clear, neck supple, nontender, trachea midline. No drooling or trismus noted. No meningeal signs. No hot potato voice noted. Lungs: Clear to auscultation, breath sounds equal bilaterally, chest nontender. Heart: S1S2, regular rate and rhythm without overt murmur Abdomen: Soft, nondistended, nontender. Negative for masses or hepatosplenomegaly. Negative for costovertebral tenderness. Pelvis: Stable nontender. Genitourinary: Deferred. Rectal: Deferred. Skin: Intact, warm, dry. No lesions or rashes noted. Extremities: Atraumatic, negative for cords or calf pain. Neurovascular unremarkable. Neuro: Awake, alert, oriented to person, place, but not time. Cranial nerves II through XII unremarkable. Cerebellum unremarkable. Motor and sensory unremarkable throughout. Exam nonfocal. Notes: Patients family is concerned that patient may be suicidal. Patient currently denies suicidal ideation with plan or intent here in the ED. However, patient is intoxicated at this time. Patient will be held in the ED and continue to be monitored. Dr. Velarde has assumed care and will continue to monitor patient and disposition. Diagnostics: Bedside glucose Therapeutics: None Prescription: Impression: Alcohol intoxication Plan: Definitive disposition and diagnosis as appropriate pending reevaluation and review of above. Past Medical History - Past Health History Medical/Surgical History: Denies Medical/Surgical History Respiratory History: Reports: Other (See Below) Other Respiratory History: claimed that she had collapse left lung last August- when asked what caused it " spontaneous combustion" Psychiatric History: Reports: Anxiety, Depression - History Comment History Comment: Past medical history not obtainable or reliable secondary to the patient's intoxication Social & Family History - Family History Family Medical History: Noncontributory - Caffeine Use Caffeine Use: Reports: None ED ROS GENERAL - Review of Systems Review Of Systems: Comprehensive ROS is negative, except as noted in HPI. ED EXAM, GENERAL - Physical Exam Exam: See Below (see dictation) Course - Orders/Labs/Meds Labs: Laboratory Tests 05/12/19 05/12/19 05/12/19 Range/Units 22:05 22:05 22:05 WBC 7.91 (4.0-11.0) K/uL RBC 4.65 (4.30-5.90) M/uL Hgb 13.6 (12.0-16.0) g/dL Hct 40.1 (36.0-46.0) % MCV 86.2 (80.0-98.0) fL MCH 29.2 (27.0-32.0) pg MCHC 33.9 (31.0-37.0) g/dL RDW Std Deviation 44.0 (28.0-62.0) fl RDW Coeff of Jaquan 14 (11.0-15.0) % Plt Count 200 (150-400) K/uL MPV 10.10 (7.40-12.00) fL Neut % (Auto) 63.4 (48.0-80.0) % Lymph % (Auto) 34.1 (16.0-40.0) % Chambers % (Auto) 2.1 (0.0-15.0) % Eos % (Auto) 0.0 (0.0-7.0) % Baso % (Auto) 0.4 (0.0-1.5) % Neut # (Auto) 5.0 (1.4-5.7) K/uL Lymph # (Auto) 2.7 H (0.6-2.4) K/uL Chambers # (Auto) 0.2 (0.0-0.8) K/uL Eos # (Auto) 0.0 (0.0-0.7) K/uL Baso # (Auto) 0.0 (0.0-0.1) K/uL Nucleated RBC % 0.0 /100WBC Nucleated RBCs # 0 K/uL Sodium 142 (136-145) mmol/L Potassium 4.2 (3.5-5.1) mmol/L Chloride 103 (98-107) mmol/L Carbon Dioxide 22.1 (21.0-32.0) mmol/L BUN 14 (7.0-18.0) mg/dL Creatinine 0.7 (0.6-1.0) mg/dL Est Cr Clr Drug Dosing TNP Estimated GFR (MDRD) > 60.0 ml/min Glucose 94 (74-106) mg/dL Calcium 8.2 L (8.5-10.1) mg/dL Troponin I < 0.050 (0.000-0.056) ng/mL HCG, Qual NEGATIVE (NEG) Ethyl Alcohol 403 mg/dL Meds: Medications Discontinued Medications Generic Name Dose Route Start Last Admin Trade Name Freq PRN Reason Stop Dose Admin Sodium Chloride 1,000 mls @ 1,000 mls/hr 05/12/19 22:57 05/12/19 23:04 Normal Saline IV 05/12/19 23:56 1,000 mls/hr .Bolus ONE Administration Sodium Chloride 1,000 mls @ 1,000 mls/hr 05/12/19 22:57 05/12/19 23:00 Normal Saline IV 05/12/19 23:56 Not Given .Bolus ONE Sepsis Event Note - Evaluation Sepsis Screening Result: No Definite Risk - Focused Exam Date Exam was Performed: 05/16/19 Time Exam was Performed: 09:54
[2019-05-12 22:34] LABS: BLOOD UREA NITROGEN,BUN 14 mg/dL (7.0-18.0); CARBON DIOXIDE,CO2 22.1 mmol/L (21.0-32.0); CHLORIDE,CL 103 mmol/L (98-107); GLUCOSE RANDOM 94 mg/dL (74-106); POTASSIUM,K 4.2 mmol/L (3.5-5.1); SODIUM,NA 142 mmol/L (136-145)
[2019-05-12] MEDS ORDERED: Sodium Chloride 0.9% 1,000 ML IV ONE ×2 (22:57)
--- NOTE | 2019-05-12 23:24 | CR ---
Indication: Altered mental status. Technique: A single AP portable view of the chest. Comparison: December 26, 2018. Findings: The heart is normal in size. The lungs are clear. No infiltrate, pleural effusion, or pneumothorax is identified. Impression: No acute cardiopulmonary process Dictated by Mary Hammonds MD @ May 12 2019 11:22PM Signed by Dr. Mary Hammonds @ May 12 2019 11:23PM
--- NOTE | 2019-05-12 23:24 | CT ---
Indication: Altered mental status. Technique: Multiple contiguous axial images were obtained from the skullbase through the vertex without intravenous contrast enhancement. Please note that all CT scans at this facility use dose modulation, iterative reconstruction, and/or weight-based dosing when appropriate to reduce radiation dose to as low as reasonably achievable. Comparison: December 30, 2018. Findings: The ventricles are symmetric and normal in size and morphology. The basal cisterns are widely patent. No intra-axial or extra-axial hemorrhage is identified. No mass, mass effect or midline shift is seen. The bony calvarium is intact. The visualized paranasal sinuses and mastoid air cells are clear. Impression: No acute intracranial process. Please note that all CT scans at this facility use dose modulation, iterative reconstruction, and/or weight-based dosing when appropriate to reduce radiation dose to as low as reasonably achievable. Dictated by Mary Hammonds MD @ May 12 2019 11:21PM Signed by Dr. Mary Hammonds @ May 12 2019 11:22PM
== END 2019-05-13 00:38 | disposition home or self-care (01) ==
LOC: MW.ED 19:21
DX: F10.129 Alcohol abuse with intoxication, unspecified (principal); Y90.8 Blood alcohol level of 240 mg/100 ml or more; Z88.8 Allergy status to other drugs, medicaments and biological substances; Z88.2 Allergy status to sulfonamides
CPT/HCPCS: 36415; 70450; 71045; 80048; 80320; 84484; 84703; 85025; 93005; 96360; 99285; J7030; 99284; G0480

== ENCOUNTER 2019-09-06 21:43 | Emergency (ER) | payer SELFPAY ==
[2019-09-06] MEDS ORDERED: Sodium Chloride 0.9% 1,000 ML IV ONE ×2 (22:07→22:49)
[2019-09-06] MEDS ORDERED: LORazepam 2 MG/ML SDV IVPUSH ONE ×2 (22:08→22:54)
--- NOTE | 2019-09-06 22:09 | EDM.PDOC ---
ED HPI GENERAL MEDICAL PROBLEM - General Chief Complaint: Neurological Problem Stated Complaint: SEIZURES Time Seen by Provider: 09/06/19 22:04 Source of Information: Reports: Patient History Limitations: Reports: No Limitations - History of Present Illness INITIAL COMMENTS - FREE TEXT/NARRATIVE: Patient states she had a seizure when at home. She is with her significant other at the time. She was not told how long the seizure lasted. She denies any injuries or biting her tongue. She has not had previously similar seizure before. States she felt nauseous before the seizure and is still feeling nauseous. She states she has been having dry heaves since yesterday. Patient denies any emesis or bloody or tarry stools. She denies any abdominal pain. Denies any diarrhea. And acknowledges that she drinks alcohol every day but did not have any alcohol today and might be in withdrawal. Somewhat tremulous. Denies any fever or chills. Has no significant cough or shortness of breath. No dysuria or hematuria. Denies any head trauma. She is complaining of frontal headache currently. She denies any change in her vision hearing or numbness or weakness or paresthesias. Onset: Today Duration: Resolved Prior to Arrival Severity: Severe Improves with: Reports: None Worsens with: Reports: None Context: Reports: Other (Withdrawal from alcohol) Associated Symptoms: Reports: No Other Symptoms - Related Data Allergies Allergy/AdvReac Type Severity Reaction Status Date / Time risperidone [From Risperdal] Allergy Other Verified 09/06/19 22:05 Sulfa (Sulfonamide Allergy Rash Verified 09/06/19 22:05 Antibiotics) Home Meds: Home Meds . [No Known Home Meds] 09/06/19 [History] Past Medical History - Past Health History Medical/Surgical History: Denies Medical/Surgical History Respiratory History: Reports: Other (See Below) Other Respiratory History: claimed that she had collapse left lung last August- when asked what caused it " spontaneous combustion" Psychiatric History: Reports: Anxiety, Depression - History Comment History Comment: Past medical history not obtainable or reliable secondary to the patient's intoxication Social & Family History - Family History Family Medical History: Noncontributory - Caffeine Use Caffeine Use: Reports: None ED ROS GENERAL - Review of Systems Review Of Systems: Comprehensive ROS is negative, except as noted in HPI. - Physical Exam Exam: See Below Text/Narrative:: Exam: See Below Exam Limited By: No Limitations Head: Atraumatic Neck: Normal Inspection. No: Carotid Bruit, Lymphadenopathy (R) Respiratory/Chest: No Respiratory Distress, Lungs Clear, Normal Breath Sounds, No Accessory Muscle Use. No: Chest Non-Tender Cardiovascular: Normal Peripheral Pulses, Regular Rate, Rhythm, No Edema, No JVD GI/Abdominal: Normal Bowel Sounds, Tender. No: Non-Tender, Splenomegaly Back Exam: Normal Inspection. No: CVA Tenderness (R) Extremities: Normal Inspection. No: No Pedal Edema Neurological: Alert, Oriented, Normal Cognition Psychiatric: Normal Affect Skin Exam: Warm Lymphatic: No Adenopathy General Appearance: Alert, No Apparent Distress Course - Vital Signs Text/Narrative:: Patient's labs were normal except for very elevated lactate at 7.6. Patient was given 2 mg lorazepam 2 L IV fluid and her second lactate returned is normal. She is feeling better at this time. I will give her a prescription for some lorazepam. She is instructed to go to Alcoholics Anonymous or detox. Return to ER if symptoms are worse. Last Recorded V/S: Last Vital Signs Temp 36.3 C 09/06/19 22:06 Pulse 101 H 09/06/19 22:55 Resp 18 09/06/19 22:55 BP 118/83 09/06/19 22:55 Pulse Ox 96 09/06/19 22:55 - Orders/Labs/Meds Orders: Active Orders 24 hr Category Date Time Status DRUG SCREEN, URINE [URCHEM] Stat Lab 09/06/19 22:07 Ordered UA W/MICROSCOPIC [URIN] Stat Lab 09/06/19 22:07 Ordered Labs: Laboratory Tests 09/06/19 09/06/19 09/06/19 Range/Units 21:55 21:55 21:55 WBC 4.05 (4.0-11.0) K/uL RBC 3.93 L (4.30-5.90) M/uL Hgb 11.7 L (12.0-16.0) g/dL Hct 35.0 L (36.0-46.0) % MCV 89.1 (80.0-98.0) fL MCH 29.8 (27.0-32.0) pg MCHC 33.4 (31.0-37.0) g/dL RDW Std Deviation 46.7 (28.0-62.0) fl RDW Coeff of Jaquan 14 (11.0-15.0) % Plt Count 116 L (150-400) K/uL MPV 10.20 (7.40-12.00) fL Neut % (Auto) 60.3 (48.0-80.0) % Lymph % (Auto) 31.4 (16.0-40.0) % [place] % (Auto) 7.9 (0.0-15.0) % Eos % (Auto) 0.2 (0.0-7.0) % Baso % (Auto) 0.2 (0.0-1.5) % Neut # (Auto) 2.4 (1.4-5.7) K/uL Lymph # (Auto) 1.3 (0.6-2.4) K/uL [place] # (Auto) 0.3 (0.0-0.8) K/uL Eos # (Auto) 0.0 (0.0-0.7) K/uL Baso # (Auto) 0.0 (0.0-0.1) K/uL Nucleated RBC % 0.0 /100WBC Nucleated RBCs # 0 K/uL Lactate 7.6 H* (0.20-2.00) mmol/L Sodium 136 (136-145) mmol/L Potassium 3.7 (3.5-5.1) mmol/L Chloride 95 L (98-107) mmol/L Carbon Dioxide 19.2 L (21.0-32.0) mmol/L BUN 12 (7.0-18.0) mg/dL Creatinine 0.9 (0.6-1.0) mg/dL Est Cr Clr Drug Dosing 82.99 mL/min Estimated GFR (MDRD) > 60.0 ml/min Glucose 147 H (74-106) mg/dL Calcium 9.4 (8.5-10.1) mg/dL Total Bilirubin 1.0 (0.2-1.0) mg/dL AST 103 H (15-37) IU/L ALT 37 (14-63) IU/L Alkaline Phosphatase 128 H (46-116) U/L Total Protein 7.6 (6.4-8.2) g/dL Albumin 4.0 (3.4-5.0) g/dL Globulin 3.6 (2.6-4.0) g/dL Albumin/Globulin Ratio 1.1 (0.9-1.6) Ethyl Alcohol 8 mg/dL 09/06/19 Range/Units 23:45 WBC (4.0-11.0) K/uL RBC (4.30-5.90) M/uL Hgb (12.0-16.0) g/dL Hct (36.0-46.0) % MCV (80.0-98.0) fL MCH (27.0-32.0) pg MCHC (31.0-37.0) g/dL RDW Std Deviation (28.0-62.0) fl RDW Coeff of Jaquan (11.0-15.0) % Plt Count (150-400) K/uL MPV (7.40-12.00) fL Neut % (Auto) (48.0-80.0) % Lymph % (Auto) (16.0-40.0) % [place] % (Auto) (0.0-15.0) % Eos % (Auto) (0.0-7.0) % Baso % (Auto) (0.0-1.5) % Neut # (Auto) (1.4-5.7) K/uL Lymph # (Auto) (0.6-2.4) K/uL [place] # (Auto) (0.0-0.8) K/uL Eos # (Auto) (0.0-0.7) K/uL Baso # (Auto) (0.0-0.1) K/uL Nucleated RBC % /100WBC Nucleated RBCs # K/uL Lactate 0.9 (0.20-2.00) mmol/L Sodium (136-145) mmol/L Potassium (3.5-5.1) mmol/L Chloride (98-107) mmol/L Carbon Dioxide (21.0-32.0) mmol/L BUN (7.0-18.0) mg/dL Creatinine (0.6-1.0) mg/dL Est Cr Clr Drug Dosing mL/min Estimated GFR (MDRD) ml/min Glucose (74-106) mg/dL Calcium (8.5-10.1) mg/dL Total Bilirubin (0.2-1.0) mg/dL AST (15-37) IU/L ALT (14-63) IU/L Alkaline Phosphatase (46-116) U/L Total Protein (6.4-8.2) g/dL Albumin (3.4-5.0) g/dL Globulin (2.6-4.0) g/dL Albumin/Globulin Ratio (0.9-1.6) Ethyl Alcohol mg/dL Meds: Medications Discontinued Medications Generic Name Dose Route Start Last Admin Trade Name Fausto PRN Reason Stop Dose Admin Sodium Chloride 1,000 mls @ 999 mls/hr 09/06/19 22:07 09/06/19 22:18 Normal Saline IV 09/06/19 23:07 999 mls/hr .BOLUS ONE Administration Sodium Chloride 1,000 mls @ 999 mls/hr 09/06/19 22:49 09/06/19 23:04 Normal Saline IV 09/06/19 23:49 999 mls/hr .BOLUS ONE Administration Lorazepam 1 mg 09/06/19 22:08 09/06/19 22:19 Ativan IVPUSH 09/06/19 22:09 1 mg ONETIME ONE Administration Lorazepam 1 mg 09/06/19 22:54 09/06/19 23:05 Ativan IVPUSH 09/06/19 22:55 1 mg ONETIME ONE Administration Departure - Departure Time of Disposition: 23:59 Disposition: Home, Self-Care 01 Condition: Good Clinical Impression: Alcohol withdrawal seizure, Dehydration, Alcohol abuse - Discharge Information Instructions: Alcohol Use Disorder, Alcohol Withdrawal Syndrome Referrals: PCP,None [Primary Care Provider] - Forms: ED Department Discharge Additional Instructions: Go to Alcoholics Anonymous or detox. Not drinking alcohol. Spam as needed. Return to ER if worse. Care Plan Goals: The following information is given to patients seen in the emergency department who are being discharged to home. This information is to outline your options for follow-up care. We provide all patients seen in our emergency department with a follow-up referral. The need for follow-up, as well as the timing and circumstances, are variable depending upon the specifics of your emergency department visit. If you don't have a primary care physician on staff, we will provide you with a referral. We always advise you to contact your personal physician following an emergency department visit to inform them of the circumstance of the visit and for follow-up with them and/or the need for any referrals to a consulting specialist. The emergency department will also refer you to a specialist when appropriate. This referral assures that you have the opportunity for follow-up care with a specialist. All of these measure are taken in an effort to provide you with optimal care, which includes your follow-up. Under all circumstances we always encourage you to contact your private physician who remains a resource for coordinating your care. When calling for follow-up care, please make the office aware that this follow-up is from your recent emergency room visit. If for any reason you are refused follow-up, please contact the [facility] Emergency Department at and asked to speak to the emergency department charge nurse. Sepsis Event Note - Focused Exam Vital Signs: Vital Signs Temp Pulse Resp BP Pulse Ox 09/06/19 22:55 101 H 18 118/83 96 09/06/19 22:06 36.3 C 115 H 17 129/81 95 Date Exam was Performed: 09/06/19 Time Exam was Performed: 23:56 - My Orders Last 24 Hours: My Active Orders 09/06/19 22:07 DRUG SCREEN, URINE [URCHEM] Stat UA W/MICROSCOPIC [URIN] Stat - Assessment/Plan Last 24 Hours: My Active Orders 09/06/19 22:07 DRUG SCREEN, URINE [URCHEM] Stat UA W/MICROSCOPIC [URIN] Stat
[2019-09-06 22:26] LABS: BLOOD UREA NITROGEN,BUN 12 mg/dL (7.0-18.0); CARBON DIOXIDE,CO2 19.2 mmol/L (21.0-32.0); CHLORIDE,CL 95 mmol/L (98-107); GLUCOSE RANDOM 147 mg/dL (74-106); POTASSIUM,K 3.7 mmol/L (3.5-5.1); SODIUM,NA 136 mmol/L (136-145)
== END 2019-09-07 00:20 | disposition home or self-care (01) ==
LOC: MW.ED 21:43
DX: F10.239 Alcohol dependence with withdrawal, unspecified (principal); R56.9 Unspecified convulsions; E86.0 Dehydration; Z88.2 Allergy status to sulfonamides; Z88.8 Allergy status to other drugs, medicaments and biological substances
CPT/HCPCS: 36415; 80053; 80307; 83605; 85025; 93005; 96361; 96374; 96376; 99284; J2060; J7030; 99283